=== PATIENT | female | born 1955 | race Two or more races ===

== ENCOUNTER → 2016-11-23 | Outpatient (CLI) | payer BC ==
--- NOTE | 2016-11-23 14:16 | NM ---
EXAMINATION TYPE: NM bone scan whole body DATE OF EXAM: 11/23/2016 COMPARISON: CT abdomen pelvis 06/03/2014, thoracic spine 03/15/2011 HISTORY: Joint pain, rheumatoid arthritis, M06.9 Delayed whole-body scanning was performed following the injection of 24.4 mCi Tc 99m MDP. Images acq uired 5.5 hours post injection. FINDINGS: There is uptake within the wrists, knees, ankles, feet, shoulders, and cervical spine compatible with arthropathy change. Uptake in the lower thoracic spine may be due to degenerative disc disease. Ther e is a spinal curvature present. IMPRESSION: Findings compatible with arthritis, consider degenerative disc disease and osteoarthritis, plain film correlations.
== END ==
LOC: RADNMMAIN 07:26
PROVIDERS: ATTEND Internal Medicine
DX: M06.9 Rheumatoid arthritis, unspecified (principal)
CPT/HCPCS: 78306; A9503

== ENCOUNTER → 2018-03-01 | Outpatient (CLI) | payer OTHER | LOC: RADMRIMAIN 17:59 | PROVIDERS: ATTEND Internal Medicine | DX: Z53.9 Procedure and treatment not carried out, unspecified reason (principal) ==

== ENCOUNTER → 2018-03-03 | Outpatient (CLI) | payer OTHER ==
--- NOTE | 2018-03-03 23:05 | MR ---
EXAMINATION TYPE: MR brittany/lspine wo con DATE OF EXAM: 03/03/2018 COMPARISON: None HISTORY: Cervicalgia /Low back pain TECHNIQUE: Multiplanar, multisequence imaging of the lumbar spine and cervical spine is performed wit hout IV contrast. FINDINGS: The cervical vertebra have fairly normal alignment. There is some degenerative disc space narrowing a t C3-4 C5-6 and C6-7. There is small posterior cervical disc herniations at C3-4 C5-6 C6-7. There is a large slightly larger posterior disc herniation at C4-5. There is 8 mm spinal canal at C6-7. The ca nal is 9 mm at C5-6. Cervical spinal cord shows no edema. Brainstem appears intact. There is multilev el hypertrophic cervical facet arthropathy. There is no cervical paraspinal mass. The lumbar vertebra have normal alignment. Disc spaces are fairly normal for age. The posterior eleme nts are intact. There is no compression fracture. The neuroforamina are fairly well-maintained. I see no bony destructive process. There is no lumbar spinal stenosis. There is no lumbar paraspinal mass. There is small posterior disc bulging at L2-3 without compromise of the spinal canal. IMPRESSION: Multilevel cervical spondylotic changes as above. There is 8 mm mild spinal stenosis at C6-7. Mild po sterior multilevel cervical disc herniation as above. No fracture. Minor degenerative changes in the lumbar spine. No fracture. No spinal stenosis.
== END ==
LOC: RADMRIMAIN 14:33
PROVIDERS: ATTEND Internal Medicine
DX: M48.02 Spinal stenosis, cervical region (principal); M50.21 Other cervical disc displacement, high cervical region; M47.812 Spondylosis without myelopathy or radiculopathy, cervical region; M47.816 Spondylosis without myelopathy or radiculopathy, lumbar region
CPT/HCPCS: 72141; 72148

== ENCOUNTER → 2019-11-29 | Outpatient (CLI) | payer OTHER ==
[2019-11-29 14:56] LABS: Basophils # (A) 0.1 k/uL (0-0.2); Basophils % (A) 1 %; Eosinophils # (A) 0.3 k/uL (0-0.7); Eosinophils % (A) 3 %; HCT 44.6 % (34.0-46.0); HGB 14.3 gm/dL (11.4-16.0); Lymphocytes # (A) 3.1 k/uL (1.0-4.8); Lymphocytes % (A) 32 %; MCH 32.1 pg (25.0-35.0); MCHC 32.1 g/dL (31.0-37.0); Monocytes # (A) 0.4 k/uL (0-1.0); Monocytes % (A) 4 %; Neutrophils # (A) 5.9 k/uL (1.3-7.7); Neutrophils % (A) 59 %; Platelet Count 223 k/uL (150-450); RBC 4.46 m/uL (3.80-5.40); RDW 12.5 % (11.5-15.5); WBC 9.9 k/uL (3.8-10.6)
[2019-11-30 00:54] LABS: African American GFR (CKD) 91.6 (60.0-200.0); Albumin 4.3 g/dL (3.80-4.90); Albumin/Globulin Ratio 1.95 (1.60-3.17); Anion Gap 8.1 mmol/L (4.00-12.00); BUN/Creat Ratio 28.75 Ratio (12.00-20.00); Calcium 8.8 mg/dL (8.7-10.3); Carbon Dioxide 25.9 mmol/L (21.6-31.8); Chol/HDL Ratio 3.17; Globulin 2.2 g/dL (1.6-3.3); LDL Cholesterol,Calculated 82.8 mg/dL (0.0-131.0); Potassium 4.1 mmol/L (3.5-5.5); Total Bilirubin 0.4 mg/dL (0.2-1.2); Total Protein 6.5 g/dL (6.2-8.2); VLDL Calculation 30.2 mg/dL (5.00-40.00)
== END | disposition home or self-care (01) ==
LOC: LABWHC1 11:28
PROVIDERS: ATTEND Nurse Practitioner Acute Care
DX: E55.9 Vitamin D deficiency, unspecified (principal); R53.83 Other fatigue; R42 Dizziness and giddiness
CPT/HCPCS: 36415; 80053; 80061; 82306; 82607; 85025

== ENCOUNTER 2023-07-08 15:03 | Observation (INO) | payer MEDICARE, OTHER ==
[2023-07-08 17:09] LABS: Basophils # (A) 0.1 k/uL (0-0.2); Basophils % (A) 1 %; Eosinophils # (A) 0.2 k/uL (0-0.7); Eosinophils % (A) 2 %; HCT 45.8 % (34.0-46.0); HGB 15.4 gm/dL (11.4-16.0); Lymphocytes # (A) 2.1 k/uL (1.0-4.8); Lymphocytes % (A) 21 %; MCH 33.2 pg (25.0-35.0); MCHC 33.6 g/dL (31.0-37.0); Mean Platelet Volume 8.1; Monocytes # (A) 0.4 k/uL (0-1.0); Monocytes % (A) 4 %; Neutrophils # (A) 6.9 k/uL (1.3-7.7); Neutrophils % (A) 71 %; Platelet Count 229 k/uL (150-450); RBC 4.62 m/uL (3.80-5.40); RDW 12.6 % (11.5-15.5); WBC 9.7 k/uL (3.8-10.6)
[2023-07-08 17:23] LABS: ALT 13 U/L (4-34); AST 22 U/L (14-36); African American GFR (CKD) >90 (>60 ml/min/1.73 sqM); Albumin 3.8 g/dL (3.5-5.0); Alkaline Phosphatase 95 U/L (38-126); Anion Gap 4 mmol/L; Blood Urea Nitrogen 19 mg/dL (7-17); Calcium 9.1 mg/dL (8.4-10.2); Carbon Dioxide 28 mmol/L (22-30); Chloride 107 mmol/L (98-107); Glucose 121 mg/dL (74-99); Non-African American GFR(CKD) >90 (>60 ml/min/1.73 sqM); Potassium 4.1 mmol/L (3.5-5.1); Sodium 139 mmol/L (137-145); Total Bilirubin 0.5 mg/dL (0.2-1.3); Total Protein 6.5 g/dL (6.3-8.2)
[2023-07-08 17:55] LABS: INR 0.9 (<1.2); Partial Thromboplastin Time 28.1 sec (22.0-30.0); Prothrombin Time 9.9 sec (10.0-12.5)
--- NOTE | 2023-07-08 19:07 | ED ---
General Adult HPI - General Chief complaint: Headache Stated complaint: Stroke symptoms Time Seen by Provider: 07/08/23 15:10 Source: patient Mode of arrival: wheelchair Limitations: no limitations - History of Present Illness Initial comments: 68-year-old female who presents the emergency department reporting near syncope. States that she was at a restaurant eating when she felt like she was get a pass out. States that she got very weak and stiff. She was having some chest pain and shortness of breath. Patient reports that she has been having hemo ptysis for the past couple of weeks. Patient is a smoker. She denies history of coronary disease. Patient ended up going home from the restaurant of symptoms past however she started feeling weak and diaphoretic once again at home and this is what prompted her to come into the emergency department. - Related Data Home Medications Medication Instructions Recorded Confirmed Omeprazole 20 mg PO DAILY 02/24/16 07/08/23 Aspirin EC [Ecotrin Low Dose] 81 mg PO DAILY 07/08/23 07/08/23 Escitalopram [Lexapro] 5 mg PO DAILY 07/08/23 07/08/23 Gabapentin 600 mg PO QID PRN 07/08/23 07/08/23 HYDROcodone/APAP 10-325MG [[place] 1 tab PO TID PRN 07/08/23 07/08/23 10-325] Meloxicam [Mobic] 15 mg PO DAILY 07/08/23 07/08/23 lisinopriL [Zestril] 5 mg PO DAILY 07/08/23 07/08/23 Previous Rx's Medication Instructions Recorded Nicotine 14Mg/24Hr Patch [Habitrol] 1 patch TRANSDERM DAILY #30 patch 07/09/23 Allergies Allergy/AdvReac Type Severity Reaction Status Date / Time No Known Allergies Allergy Verified 07/08/23 16:35 Review of Systems ROS Statement: Those systems with pertinent positive or pertinent negative responses have been documented in the HPI. ROS Other: All systems not noted in ROS Statement are negative. Past Medical History Past Medical History: Fibromyalgia, GERD/Reflux, Osteoarthritis (OA) Additional Past Medical History / Comment(s): pleurisy, migraines, "slow heart rate" getting heart monitor today, on antibioitics for "stomach infection", recent diarrhea, History of Any Multi-Drug Resistant Organisms: None Reported Past Surgical History: Orthopedic Surgery Additional Past Surgical History / Comment(s): reyes knee arthroscopy, left meng ulder arthroscopy Past Anesthesia/Blood Transfusion Reactions: No Reported Reaction Past Psychological History: No Psychological Hx Reported Past Alcohol Use History: None Reported Past Drug Use History: Marijuana - Past Family History Father Family Medical History: Cancer Mother Family Medical History: Cancer General Exam Limitations: no limitations General appearance: alert, in no apparent distress Head exam: Present: atraumatic, normocephalic, normal inspection Eye exam: Present: normal appearance, PERRL, EOMI. Absent: scleral icterus, conjunctival injection, periorbital swelling ENT exam: Present: normal exam, mucous membranes moist Neck exam: Present: normal inspection. Absent: tenderness, meningismus, lymphadenopathy Respiratory exam: Present: wheezes. Absent: respiratory distress, rales, rhonchi, stridor Cardiovascular Exam: Present: regular rate, normal rhythm, normal heart sounds. Absent: systolic murmur, diastolic murmur, rubs, gallop, clicks GI/Abdominal exam: Present: soft, normal bowel sounds. Absent: distended, tenderness, guarding, rebound, rigid Extremities exam: Present: normal inspection, full ROM, normal capillary refill. Absent: tenderness, pedal edema, joint swelling, calf tenderness Back exam: Present: normal inspection Neurological exam: Present: alert, oriented X3, CN II-XII intact Psychiatric exam: Present: normal affect, normal mood Skin exam: Present: warm, dry, intact, normal color. Absent: rash Course Vital Signs 07/08/23 07/08/23 07/08/23 15:09 18:12 20:39 Temperature 99.0 F Pulse Rate 71 63 68 Pulse Rate [ Pulse Oximetery ] Respiratory 16 16 16 Rate Blood Pressure 156/89 160/81 Blood Pressure [Right Arm] O2 Sat by Pulse 97 99 97 Oximetry 07/08/23 21:50 Temperature 98.3 F Pulse Rate Pulse Rate [ 63 Pulse Oximetery ] Respiratory 16 Rate Blood Pressure Blood Pressure 162/77 [Right Arm] O2 Sat by Pulse 99 Oximetry Medical Decision Making - Medical Decision Making Was pt. sent in by a medical professional or institution (, PA, UNDERTAKER ASSISTANT, urgent care, hospital, or shelter...) When possible be specific @ -No Did you speak to anyone other than the patient for history (EMS, parent, family, police, friend...)? What history was obtained from this source @ -No Did you review nursing and triage notes (agree or disagree)? Why? @ -I reviewed nursing note. Reports that the patient is here for headache. Patient states that she is here for near syncope and hemoptysis, not headache Were old charts reviewed (outside hosp., previous admission, EMS record, old EKG, old radiological studies, urgent care reports/EKG's, shelter records)? Report findings @ -No old charts were reviewed Differential Diagnosis (chest pain, altered mental status, abdominal pain women, abdominal pain men, vaginal bleeding, weakness, fever, dyspnea, syncope, headache, dizziness, GI bleed, back pain, seizure, CVA, palpatations, mental health, musculoskeletal)? @ -Differential Dizziness: Benign paroxysmal positional Vertigo, Menieres disease, otitis media, acoustic neuroma, vertebrobasilar insufficiency, cerebellar stroke, encephalitis, hypovolemic, arrhythmia, coronary artery syndrome, anemia, this is not meant to be an all-inclusive list EKG interpreted by me (3pts min.). @ -Yes and demonstrates sinus rhythm with a rate of 68. OK interval 145. QRS 86. QTc of 440. No acute ST segment ovation's or depressions X-rays interpreted by me (1pt min.). @ -None done CT interpreted by me (1pt min.). @ -Yes and demonstrates a large spiculated lung mass U/S interpreted by me (1pt. min.). @ -None done What testing was considered but not performed or refused? (CT, X-rays, U/S, labs)? Why? @ -None What meds were considered but not given or refused? Why? @ -None Did you discuss the management of the patient with other professionals (professionals i.e. , PA, UNDERTAKER ASSISTANT, lab, RT, psych nurse, social science professor, filler shredder helper, teacher, loan workout officer, immigration case worker)? Give summary @ -Spoke with Dr. Durbin who will admit the patient Was smoking cessation discussed for >3mins.? @ -Yes, smoking cessation was discussed for 5 minutes in the setting that the patient has likely lung cancer. Stressed that the patient must quit at this time while she is undergoing treatment Was critical care preformed (if so, how long)? @ -No Were there social determinants of health that impacted care today? How? (Homelessness, low income, unemployed, alcoholism, drug addiction, transportation, low edu. Level, literacy, decrease access to med. care, penitentiary, rehab)? @ -No Was there de-escalation of care discussed even if they declined (Discuss DNR or withdrawal of care, Hospice)? DNR status @ -No What co-morbidities impacted this encounter? (DM, HTN, Smoking, COPD, CAD, Cancer, CVA, ARF, Chemo, Hep., AIDS, mental health diagnosis, sleep apnea, morbid obesity)? @ -None Was patient admitted / discharged? Hospital course, mention meds given and route, prescriptions, significant lab abnormalities, going to OR and other pertinent info. @ -Upon arrival patient was placed into room 26. Thorough history and physical exam was performed. IV was established and laboratory studies are conducted. CT of the chest was performed which demonstrates a large bronchogenic mass. Due to patient's near syncope and newly diagnosed lung mass, I recommended admission for pulmonology consultation. Patient was agreeable to this. Spoke with Dr. Durbin for admission Undiagnosed new problem with uncertain prognosis? @ -Yes Drug Therapy requiring intensive monitoring for toxicity (Heparin, Nitro, Insulin, Cardizem)? @ -No Were any procedures done? @ -No Diagnosis/symptom? @ -Acute hemoptysis, near syncope, newly diagnosed lung mass Acute, or Chronic, or Acute on Chronic? @ -Acute Uncomplicated (without systemic symptoms) or Complicated (systemic symptoms)? @ -Complicated Side effects of treatment? @ -No Exacerbation, Progression, or Severe Exacerbation? @ -No Poses a threat to life or bodily function? How? (Chest pain, [place], [place], pneumonia, PE, COPD, DKA, ARF, appy, cholecystitis, CVA, Diverticulitis, Homicidal, Suicidal, threat to staff... and all critical care pts) @ -Yes as patient has possible newly diagnosed cancer - Lab Data Result diagrams: 07/09/23 06:17 07/09/23 06:17 Lab Results 07/08/23 07/08/23 07/08/23 Range/Units 16:56 16:56 17:28 WBC 9.7 (3.8-10.6) k/uL RBC 4.62 (3.80-5.40) m/uL Hgb 15.4 (11.4-16.0) gm/dL Hct 45.8 (34.0-46.0) % MCV 99.0 (80.0-100.0) fL MCH 33.2 (25.0-35.0) pg MCHC 33.6 (31.0-37.0) g/dL RDW 12.6 (11.5-15.5) % Plt Count 229 (150-450) k/uL MPV 8.1 Neutrophils % 71 % Lymphocytes % 21 % Monocytes % 4 % Eosinophils % 2 % Basophils % 1 % Neutrophils # 6.9 (1.3-7.7) k/uL Lymphocytes # 2.1 (1.0-4.8) k/uL Monocytes # 0.4 (0-1.0) k/uL Eosinophils # 0.2 (0-0.7) k/uL Basophils # 0.1 (0-0.2) k/uL PT 9.9 L (10.0-12.5) sec INR 0.9 (<1.2) APTT 28.1 (22.0-30.0) sec Sodium 139 (137-145) mmol/L Potassium 4.1 (3.5-5.1) mmol/L Chloride 107 (98-107) mmol/L Carbon Dioxide 28 (22-30) mmol/L Anion Gap 4 mmol/L BUN 19 H (7-17) mg/dL Creatinine 0.68 (0.52-1.04) mg/dL Est GFR (CKD-EPI)AfAm >90 (>60 ml/min/1.73 sqM) Est GFR (CKD-EPI)NonAf >90 (>60 ml/min/1.73 sqM) Glucose 121 H (74-99) mg/dL Calcium 9.1 (8.4-10.2) mg/dL Magnesium (1.6-2.3) mg/dL Total Bilirubin 0.5 (0.2-1.3) mg/dL AST 22 (14-36) U/L ALT 13 (4-34) U/L Alkaline Phosphatase 95 (38-126) U/L Troponin I (0.000-0.034) ng/mL NT-Pro-B Natriuret Pep pg/mL Total Protein 6.5 (6.3-8.2) g/dL Albumin 3.8 (3.5-5.0) g/dL 07/08/23 07/08/23 Range/Units 17:28 17:28 WBC (3.8-10.6) k/uL RBC (3.80-5.40) m/uL Hgb (11.4-16.0) gm/dL Hct (34.0-46.0) % MCV (80.0-100.0) fL MCH (25.0-35.0) pg MCHC (31.0-37.0) g/dL RDW (11.5-15.5) % Plt Count (150-450) k/uL MPV Neutrophils % % Lymphocytes % % Monocytes % % Eosinophils % % Basophils % % Neutrophils # (1.3-7.7) k/uL Lymphocytes # (1.0-4.8) k/uL Monocytes # (0-1.0) k/uL Eosinophils # (0-0.7) k/uL Basophils # (0-0.2) k/uL PT (10.0-12.5) sec INR (<1.2) APTT (22.0-30.0) sec Sodium (137-145) mmol/L Potassium (3.5-5.1) mmol/L Chloride (98-107) mmol/L Carbon Dioxide (22-30) mmol/L Anion Gap mmol/L BUN (7-17) mg/dL Creatinine (0.52-1.04) mg/dL Est GFR (CKD-EPI)AfAm (>60 ml/min/1.73 sqM) Est GFR (CKD-EPI)NonAf (>60 ml/min/1.73 sqM) Glucose (74-99) mg/dL Calcium (8.4-10.2) mg/dL Magnesium 2.0 (1.6-2.3) mg/dL Total Bilirubin (0.2-1.3) mg/dL AST (14-36) U/L ALT (4-34) U/L Alkaline Phosphatase (38-126) U/L Troponin I <0.012 (0.000-0.034) ng/mL NT-Pro-B Natriuret Pep 59 pg/mL Total Protein (6.3-8.2) g/dL Albumin (3.5-5.0) g/dL Disposition Clinical Impression: Chest pain, Hemoptysis, Lung mass Disposition: ADMITTED IP TO THIS HOSP Condition: Good Is patient prescribed a controlled substance at d/c from ED?: No Time of Disposition: 20:25 Decision to Admit Reason: Admit from EC Decision Date: 07/08/23 Decision Time: 20:25
--- NOTE | 2023-07-08 19:20 | CT ---
EXAMINATION TYPE: CT chest angio for PE DATE OF EXAM: 07/08/2023 COMPARISON: NONE HISTORY: chest pain, hemoptysis CT DLP: 280 mGycm. Automated Exposure Control for Dose Reduction was Utilized. CONTRAST: CTA scan of the thorax is performed with IV Contrast, patient injected with 80ml mL of Isov ue 370. MIP Images are created on CT scanner and reviewed. 3D reconstructed images are created on an independent workstation and reviewed. FINDINGS: LUNGS: In the axial compartment of the right lower lobe there is a 3.9 cm spiculated bronchogenic mas s, consistent with bronchogenic carcinoma until proven otherwise. The remainder of the lungs are lora r. The tracheobronchial tree is patent. PLEURAL SPACES: There is no pleural effusion or pneumothorax. MEDIASTINUM: There is satisfactory enhancement of the pulmonary artery and its branches, and there is no CT evidence for pulmonary embolism. There is no acute aortic process. There are prominent coronar y calcifications. No cardiomegaly or pericardial effusion. There are no greater than 1 cm hilar or mediastinal lymph nodes. OTHER: No additional significant abnormality is seen. IMPRESSION: Negative for pulmonary embolism or acute aortic process. Prominent coronary calcification is noted. Incidental 3.9 cm right lower lobe bronchogenic mass consistent with bronchogenic carcinoma until pro radha otherwise.
[2023-07-08] MEDS ORDERED: NALOXONE 0.4 MG/ML 1 ML VIAL IV PRN (20:26)
[2023-07-08] MEDS: NICOTINE 21MG/24HR PATCH TRANSDERM STA (20:37)
[2023-07-09] MEDS ORDERED: HYDROcodone/APAP 10-325MG 1 EACH TAB PO PRN (03:18)
[2023-07-09] MEDS ORDERED: GABAPENTIN 300 MG CAP PO PRN (03:18)
--- NOTE | 2023-07-09 03:30 | P.HPIM ---
History of Present Illness H&P Date: 07/08/23 Chief Complaint: Near syncope 68-year-old female with history of MS, arthritis, hypertension Patient coming in for evaluation of near syncope. She had her doctor's appointment today and she was fasting all day to get some blood work done and then went with her fianc to the gas station get some food she felt weak and tired over there dizzy and was having palpitations so she went home continued to feel very dizzy and lightheaded and about to pass out denies any associated fevers chills nausea vomiting chest pain or shortness of breath however palpitations continued and she was getting very weak for which decided to come into the hospital for evaluation Patient also reports some occasional hemoptysis over the past 3 weeks, she admits to heavy smoking for many years but denies any associated weight loss denies any recent travel or hospital stay denies any history of blood clots. She does admit to night sweats Otherwise she denies any illicit drugs or heavy alcohol review of systems Pertinent positives as noted in HPI. All other systems were reviewed and are negative on exam Constitutional: No acute distress, conversant, pleasant Eyes: Anicteric sclerae, moist conjunctiva, Pupils equal round reactive to light ENMT: NC/AT Oropharynx clear, no erythema, or exudates Neck: Supple, no masses, or JVD No carotid bruits No thyromegaly Lungs: Clear to auscultation Clear to percussion Normal respiratory effort, no accessory muscle use Cardiovascular: Heart regular in rate and rhythm, No murmurs, gallops, or rubs No peripheral edema Abdominal: Soft Nontender, no guarding, rebound or rigidity Abdomen moving with respiration Normoactive bowel sounds Extremities: No digital cyanosis No clubbing Pedal pulses intact and symmetrical Radial pulses intact and symmetrical No calf tenderness Psychiatric: Alert and oriented to person, place and time Appropriate affect fair judgement Neuro Muscles Strength 5/5 in all 4 extremities Sensation to light touch grossly present throughout Cranial nerves II-XII grossly intact Past Medical History Past Medical History: Fibromyalgia, GERD/Reflux, Osteoarthritis (OA) Additional Past Medical History / Comment(s): pleurisy, migraines, "slow heart rate" getting heart monitor today, on antibioitics for "stomach infection", recent diarrhea, History of Any Multi-Drug Resistant Organisms: None Reported Past Surgical History: Orthopedic Surgery Additional Past Surgical History / Comment(s): reyes knee arthroscopy, left shoulder arthroscopy Past Anesthesia/Blood Transfusion Reactions: No Reported Reaction Past Psychological History: No Psychological Hx Reported Past Alcohol Use History: None Reported Past Drug Use History: Marijuana - Past Family History Father Family Medical History: Cancer Mother Family Medical History: Cancer Medications and Allergies Home Medications Medication Instructions Recorded Confirmed Type Omeprazole 20 mg PO DAILY 02/24/16 07/08/23 History Aspirin EC [Ecotrin Low Dose] 81 mg PO DAILY 07/08/23 07/08/23 History Escitalopram [Lexapro] 5 mg PO DAILY 07/08/23 07/08/23 History Gabapentin 600 mg PO QID PRN 07/08/23 07/08/23 History HYDROcodone/APAP 10-325MG [[place] 1 tab PO TID PRN 07/08/23 07/08/23 History 10-325] Meloxicam [Mobic] 15 mg PO DAILY 07/08/23 07/08/23 History lisinopriL [Zestril] 5 mg PO DAILY 07/08/23 07/08/23 History Allergies Allergy/AdvReac Type Severity Reaction Status Date / Time No Known Allergies Allergy Verified 07/08/23 16:35 Physical Exam Vitals: Vital Signs Temp Pulse Resp BP Pulse Ox 07/08/23 20:39 68 16 160/81 97 07/08/23 18:12 63 16 156/89 99 07/08/23 15:09 99.0 F 71 16 97 Intake and Output 07/08/23 07/08/23 07/08/23 06:59 14:59 22:59 Other: Weight 75.75 kg Results CBC & Chem 7: 07/08/23 16:56 07/08/23 16:56 Labs: Abnormal Lab Results - Last 24 Hours (Table) 07/08/23 07/08/23 Range/Units 16:56 17:28 PT 9.9 L (10.0-12.5) sec BUN 19 H (7-17) mg/dL Glucose 121 H (74-99) mg/dL Assessment and Plan Assessment: 68-year-old female with history of MS, osteoarthritis, coming in for near syncope dizziness generalized weakness and 3-week history of hemoptysis I discussed case with ED doctor accepted the admission for incidental finding of 4 cm bronchogenic mass concerning for bronchogenic cancer with anticipated length of stay less than 2 midnights Near syncope Cardiac monitoring Cardiology consult Check echocardiogram Supportive care Fall precautions IV fluid hydration with normal saline 75 cc/h Blood work showing white count 9.7 hemoglobin 15.4 BUN 17 creatinine 0.68 sodium 139 potassium 4.1 unremarkable Troponins negative EKG no acute ST changes, normal sinus rhythm CT angio of the chest showed no acute PE however incidental finding of 4 cm br onchogenic lumbar mass Pulmonary consultation Rule out bronchogenic cancer Patient heavy smoker Hypertension Continue with lisinopril Full code DVT prophylaxis mechanical due to possible procedure for tissue biopsy
[2023-07-09] MEDS: PANTOPRAZOLE 40 MG TABLET PO SCH (05:43)
[2023-07-09] MEDS: SODIUM CHLORIDE 0.9% 1,000 ML IV SCH (05:43)
[2023-07-09] MEDS: lisinopriL 5 MG TAB PO SCH (08:52)
[2023-07-09] MEDS: ESCITALOPRAM 5 MG TAB PO SCH (08:52)
--- NOTE | 2023-07-09 09:22 | P.CRDCN ---
History of Present Illness Consult date: 07/09/23 Consult reason: chest pain History of present illness: History of present illness: This is a 68-year-old female with past medical history of gastroesophageal reflux disease, fibromyalgia, MS, chronic back pain, osteoarthritis in the lower extremities, tobacco use and dependence, marijuana use. We have been asked to evaluate the patient for chest pain. Patient gives history that she has had episodes of dizziness feeling like she was going to pass out that been going on for the past month. She denies having any chest pain or pressure. No chest pain with activity. She states she has been busy with her daughter who has been sick for an extended period of time. Patient also states that she has been coughing up blood either pink or red in sputum but no blood clots. This has been going on for the past 2 to 3 weeks intermittently. Patient is a smoker of a half a pack per day. She also uses marijuana. No illicit drug use or alcohol use. Pulmonary medicine is on consult for lung mass. EKG sinus rhythm with no acute ST-T wave changes. CTA of the chest: Negative for pulmonary embolism or acute aortic process. Prominent coronary calcification. Incidental right lower lobe bronchogenic mass 3.9 cm consistent with bronchogenic carcinoma CBC, INR electrolytes all within normal limits. BUN 19 creatinine 0.68. Troponin negative x 3 draws. Glucose 121. Magnesium 2. Liver function test are normal. proBNP 59. Home cardiac medications: Aspirin 81 mg daily, lisinopril 5 mg daily. Review Of Systems: At the time of my exam: CONSTITUTIONAL: Denies fever or chills. HEENT: Denies blurred vision, vision changes, or eye pain. Denies hemoptysis CARDIOVASCULAR: Denies chest pain. Denies orthopnea. Denies PND. Denies palpitations RESPIRATORY: Denies shortness of breath. GASTROINTESTINAL: Denies abdominal pain. Denies nausea or vomiting. HEMATOLOGIC: Denies bleeding disorders. GENITOURINARY: Denies any blood in urine. SKIN: Denies pruitis. Denies rash. Physical examination: Gen: This is a 68-year-old female in no acute distress VS: reviewed HEENT: Head is atraumatic, normocephalic. Pupils equal, round. Sclerae is ani cteric. NECK: Supple. No JVD. LUNGS: Clear to auscultation. No wheezes or rhonchi. No intercostal retractions. HEART: Regular rate and rhythm. No murmur. ABDOMEN: Soft No tenderness. EXTREMITIES: No pedal edema. No calf tenderness. NEUROLOGICAL: Patient is awake, alert and oriented x3. Assessment: Dizziness, acute coronary syndrome ruled out with negative troponins Hemoptysis Lung mass Plan: Resume patient's home cardiac medications Obtain 2-D echocardiogram and Doppler study to assess cardiac structure and function If echocardiogram is unremarkable, patient is cleared for discharge from cardiology and will follow-up with Dr. Cordova in the office for outpatient stress testing. Thank you kindly for this consultation. Nurse practitioner note has been reviewed, I agree with documented findings and plan of care. Patient was seen and examined. Past Medical History Past Medical History: Fibromyalgia, GERD/Reflux, Osteoarthritis (OA) Additional Past Medical History / Comment(s): pleurisy, migraines, "slow heart rate" getting heart monitor today, on antibioitics for "stomach infection", recent diarrhea, History of Any Multi-Drug Resistant Organisms: None Reported Past Surgical History: Orthopedic Surgery Additional Past Surgical History / Comment(s): reyes knee arthroscopy, left shoulder arthroscopy Past Anesthesia/Blood Transfusion Reactions: No Reported Reaction Past Psychological History: No Psychological Hx Reported Past Alcohol Use History: None Reported Past Drug Use History: Marijuana - Past Family History Father Family Medical History: Cancer Mother Family Medical History: Cancer Medications and Allergies Home Medications Medication Instructions Recorded Confirmed Type Omeprazole 20 mg PO DAILY 02/24/16 07/08/23 History Aspirin EC [Ecotrin Low Dose] 81 mg PO DAILY 07/08/23 07/08/23 History Escitalopram [Lexapro] 5 mg PO DAILY 07/08/23 07/08/23 History Gabapentin 600 mg PO QID PRN 07/08/23 07/08/23 History HYDROcodone/APAP 10-325MG [[place] 1 tab PO TID PRN 07/08/23 07/08/23 History 10-325] Meloxicam [Mobic] 15 mg PO DAILY 07/08/23 07/08/23 History lisinopriL [Zestril] 5 mg PO DAILY 07/08/23 07/08/23 History Allergies Allergy/AdvReac Type Severity Reaction Status Date / Time No Known Allergies Allergy Verified 07/08/23 16:35 Physical Exam Vitals: Vital Signs Temp Pulse Pulse Resp BP BP BP 07/09/23 02:05 98.2 F 65 16 151/70 07/08/23 21:50 98.3 F 63 16 162/77 07/08/23 20:39 68 16 160/81 07/08/23 18:12 63 16 156/89 07/08/23 15:09 99.0 F 71 16 Pulse Ox 07/09/23 02:05 98 07/08/23 21:50 99 07/08/23 20:39 97 07/08/23 18:12 99 07/08/23 15:09 97 Intake and Output 07/08/23 07/09/23 07/09/23 22:59 06:59 14:59 Other: Voiding Method Toilet # Voids 1 2 Weight 75.75 kg Results 07/08/23 16:56 07/08/23 16:56 Cardiac Enzymes 07/08/23 07/08/23 07/08/23 Range/Units 16:56 17:28 22:25 AST 22 (14-36) U/L Troponin I <0.012 <0.012 (0.000-0.034) ng/mL 07/09/23 Range/Units 01:16 AST (14-36) U/L Troponin I <0.012 (0.000-0.034) ng/mL Coagulation 07/08/23 Range/Units 17:28 PT 9.9 L (10.0-12.5) sec APTT 28.1 (22.0-30.0) sec CBC 07/08/23 Range/Units 16:56 WBC 9.7 (3.8-10.6) k/uL RBC 4.62 (3.80-5.40) m/uL Hgb 15.4 (11.4-16.0) gm/dL Hct 45.8 (34.0-46.0) % Plt Count 229 (150-450) k/uL Comprehensive Metabolic Panel 07/08/23 Range/Units 16:56 Sodium 139 (137-145) mmol/L Potassium 4.1 (3.5-5.1) mmol/L Chloride 107 (98-107) mmol/L Carbon Dioxide 28 (22-30) mmol/L BUN 19 H (7-17) mg/dL Creatinine 0.68 (0.52-1.04) mg/dL Glucose 121 H (74-99) mg/dL Calcium 9.1 (8.4-10.2) mg/dL AST 22 (14-36) U/L ALT 13 (4-34) U/L Alkaline Phosphatase 95 (38-126) U/L Total Protein 6.5 (6.3-8.2) g/dL Albumin 3.8 (3.5-5.0) g/dL Current Medications Generic Name Dose Route Start Last Admin Trade Name Freq PRN Reason Stop Dose Admin Hydrocodone Bitart/Acetaminophen 1 each 07/09/23 03:18 Hydrocodone/Apap 10-325mg 1 Each Tab PO TID PRN Pain Escitalopram Oxalate 5 mg 07/09/23 09:00 Escitalopram 5 Mg Tab PO DAILY RAND Gabapentin 600 mg 07/09/23 03:18 Gabapentin 300 Mg Cap PO QID PRN Pain Sodium Chloride 1,000 mls @ 75 mls/hr 07/09/23 03:30 07/09/23 05:43 Saline 0.9% IV 75 mls/hr .[id number] RAND Administration Lisinopril 5 mg 07/09/23 09:00 Lisinopril 5 Mg Tab PO DAILY RAND Naloxone HCl 0.2 mg 07/08/23 20:26 Naloxone 0.4 Mg/Ml 1 Ml Vial IV Q2M PRN Opioid Reversal Pantoprazole Sodium 40 mg 07/09/23 07:30 07/09/23 05:43 Pantoprazole 40 Mg Tablet PO 40 mg [id number] RAND Administration Intake and Output 07/08/23 07/09/23 07/09/23 22:59 06:59 14:59 Other: Voiding Method Toilet # Voids 1 2 Weight 75.75 kg 07/08/23 16:56 07/08/23 16:56
[2023-07-09 10:48] LABS: Basophils # (A) 0.06 X 10*3/uL (0.00-0.10); Basophils % (A) 0.6 %; Eosinophils # (A) 0.07 X 10*3/uL (0.04-0.35); Eosinophils % (A) 0.7 %; HCT 46.6 % (37.2-46.3); HGB 15.6 g/dL (12.0-15.0); Lymphocytes # (A) 1.75 X 10*3/uL (0.90-5.00); Lymphocytes % (A) 17.1 %; MCH 32.1 pg (27.0-32.0); MCHC 33.5 g/dL (32.0-37.0); MCV 95.9 FL (80.0-97.0); Mean Platelet Volume 10.2 FL (9.5-12.2); Monocytes # (A) 0.45 X 10*3/uL (0.20-1.00); Monocytes % (A) 4.4 %; NRBC Per 100 WBC 0 X 10*3/uL (0.00-0.01); Neutrophils # (A) 7.87 X 10*3/uL (1.80-7.70); Neutrophils % (A) 76.8 %; Platelet Count 283 X 10*3/uL (140-440); RBC 4.86 X 10*6/uL (4.10-5.20); WBC 10.24 X 10*3/uL (4.50-10.00)
[2023-07-09 11:08] LABS: BUN/Creat Ratio 18.71 Ratio (12.00-20.00); Blood Urea Nitrogen 13.1 mg/dL (9.0-27.0); Calcium 9.6 mg/dL (8.7-10.3); Carbon Dioxide 24.3 mmol/L (21.6-31.8); Chloride 106 mmol/L (96-109); Glucose 104 mg/dL (70-110); Sodium 142 mmol/L (135-145)
--- NOTE | 2023-07-09 11:42 | P.CNPUL ---
History of Present Illness Consult date: 07/09/23 Requesting physician: Tashi Castillo Reason for consult: abnormal CXR/CT Chief complaint: Dizziness and near syncope History of present illness: This is a very pleasant 68-year-old female patient with a known history of fibromyalgia, gastroesophageal reflux disease, osteoarthritis, marijuana use and chronic and ongoing tobacco dependence of greater than 40 years. She had developed some cough and congestion with some blood-tinged sputum. Yesterday she developed dizziness and weakness while at a restaurant and presented here to the emergency room for the same. A CT angiogram was performed that ruled out pulmonary embolism. There was an incidental 3.9 cm right centimeter right lower lobe bronchogenic mass consistent with bronchogenic carcinoma noted. White count 10.2. Hemoglobin 15.6. Platelets 283. Sodium 142. Potassium 4.0. Bicarb 24. BUN 13. Creatinine 0.7. Glucose 104. Troponins were negative x 3. proBNP 59. She is seen today in consultation on the regular medical floor. She is awake and alert in no acute distress. Resting comfortably in bed. No further dizziness or near syncopal episodes. She states she does have occasional blood-tinged sputum. Denies any worsening shortness of breath. She is maintaining good O2 saturation in the high 90s on room air. She is afebrile. Hemodynamically stable. Review of Systems REVIEW OF SYSTEMS: CONSTITUTIONAL: Denies any recent significant weight loss or weight gain. EYES: Denies change in vision. EARS, NOSE, MOUTH, THROAT: Denies headaches, denies sore throat. CARDIOVASCULAR: Positive for dizziness, near syncopal episodes. RESPIRATORY: Positive for hemoptysis. GASTROINTESTINAL: Denies change in appetite, denies abdominal pain GENITOURINARY: Denies hematuria, denies infections. MUSKULOSKELETAL: Denies pain, denies swelling. INTEGUMENTARY: Denies rash, denies eczema. NEUROLOGICAL: Denies recent memory loss, no recent seizure activity. PSYCHIATRIC: Denies anxiety, denies depression. HEMATOLOGIC/LYMPHATIC: Denies anemia, denies enlarged lymph nodes. Past Medical History Past Medical History: Fibromyalgia, GERD/Reflux, Osteoarthritis (OA) Additional Past Medical History / Comment(s): pleurisy, migraines, "slow heart rate" getting heart monitor today, on antibioitics for "stomach infection", recent diarrhea, History of Any Multi-Drug Resistant Organisms: None Reported Past Surgical History: Orthopedic Surgery Additional Past Surgical History / Comment(s): reyes knee arthroscopy, left shoulder arthroscopy Past Anesthesia/Blood Transfusion Reactions: No Reported Reaction Past Psychological History: No Psychological Hx Reported Past Alcohol Use History: None Reported Past Drug Use History: Marijuana - Past Family History Father Family Medical History: Cancer Mother Family Medical History: Cancer Medications and Allergies Home Medications Medication Instructions Recorded Confirmed Type Omeprazole 20 mg PO DAILY 02/24/16 07/08/23 History Aspirin EC [Ecotrin Low Dose] 81 mg PO DAILY 07/08/23 07/08/23 History Escitalopram [Lexapro] 5 mg PO DAILY 07/08/23 07/08/23 History Gabapentin 600 mg PO QID PRN 07/08/23 07/08/23 History HYDROcodone/APAP 10-325MG [[place] 1 tab PO TID PRN 07/08/23 07/08/23 History 10-325] Meloxicam [Mobic] 15 mg PO DAILY 07/08/23 07/08/23 History lisinopriL [Zestril] 5 mg PO DAILY 07/08/23 07/08/23 History Allergies Allergy/AdvReac Type Severity Reaction Status Date / Time No Known Allergies Allergy Verified 07/08/23 16:35 Physical Exam Vitals: Vital Signs Temp Pulse Pulse Resp BP BP BP 07/09/23 07:00 97.7 F 70 18 167/80 07/09/23 02:05 98.2 F 65 16 151/70 07/08/23 21:50 98.3 F 63 16 162/77 07/08/23 20:39 68 16 160/81 07/08/23 18:12 63 16 156/89 07/08/23 15:09 99.0 F 71 16 Pulse Ox 07/09/23 07:00 99 07/09/23 02:05 98 07/08/23 21:50 99 07/08/23 20:39 97 07/08/23 18:12 99 07/08/23 15:09 97 Intake and Output 07/08/23 07/09/23 07/09/23 22:59 06:59 14:59 Intake Total 180 Balance 180 Intake: Oral 180 Other: Voiding Method Toilet # Voids 1 2 Weight 75.75 kg GENERAL EXAM: Alert, very pleasant 68-year-old female, on room air, comfortable in no apparent distress. HEAD: Normocephalic. EYES: Normal reaction of pupils, equal size. NOSE: Clear with pink turbinates. THROAT: No erythema or exudates. NECK: No masses, no JVD. CHEST: No chest wall deformity. LUNGS: Equal air entry with no crackles, wheeze, rhonchi or dullness. CVS: S1 and S2 normal with no audible murmur, regular rhythm. ABDOMEN: No hepatosplenomegaly, normal bowel sounds, no guarding or rigidity. SPINE: No scoliosis or deformity SKIN: No rashes CENTRAL NERVOUS SYSTEM: No focal deficits, tone is normal in all 4 extremities. EXTREMITIES: There is no peripheral edema. No clubbing, no cyanosis. Peripheral pulses are intact. Results - Laboratory Findings CBC and BMP: 07/09/23 06:17 07/09/23 06:17 PT/INR, D-dimer PT 9.9 sec (10.0-12.5) L 07/08/23 17:28 INR 0.9 (<1.2) 07/08/23 17:28 Abnormal lab findings: Abnormal Labs 07/08/23 07/08/23 07/09/23 16:56 17:28 06:17 WBC 10.24 H Hgb 15.6 H Hct 46.6 H MCH 32.1 H Neutrophils # 7.87 H PT 9.9 L BUN 19 H Glucose 121 H - Diagnostic Findings CT scan - chest: image reviewed Assessment and Plan Assessment: Dizziness with near syncopal episode of unclear etiology Hemoptysis in a patient found to have an incidental 3.9 cm spiculated bronchogenic mass of the right lower lobe consistent with possible bronchogenic carcinoma Chronic and ongoing tobacco dependence of greater than 40 years Family history of lung cancer with a brother with recent lobectomy History of fibromyalgia Hypertension Osteoarthritis Plan: The patient was seen and evaluated CT angiogram, labs and medications reviewed Currently stable and on room air Would recommend outpatient PET scan Encouraged regarding the importance of complete smoking cessation Would recommend CT scan of the brain due to syncope and possible metastasis Follow-up in our office with Dr. Gupta post discharge I have personally seen and examined the patient, performed the documentation and the assessment and plan as written. Number of minutes spent on the visit: 20.
[2023-07-09 16:13] VITALS: PULSE 58; RESP 16; TEMP 98.4
--- NOTE | 2023-07-09 17:59 | P.DS ---
Providers Date of admission: 07/08/23 20:28 Expected date of discharge: 07/09/23 Attending physician: Tashi Castillo MD Consults: 07/08/23 20:26 Consult Physician Urgent Consulting Provider: Justus Gupta Consult Reason/Comments: Acute hemoptysis, lung mass Do you want consulting provider notified?: Yes Consult Physician Urgent Consulting Provider: [facility] Consult Reason/Comments: acute chest pain, coronary calcifications Do you want consulting provider notified?: Yes Primary care physician: [facility] [place] [facility] Course: Near syncope bronchogenic lobar mass Hypertension Hospital Course: 68-year-old female with history of MS, arthritis, hypertension presented for near syncope. During her workup, there was an incidental finding of 4 cm bronc hogenic mass concerning for bronchogenic cancer. She was admitted for evaluation by cardiology and pulmonology. No arrhythmic episodes were noted during her stay. She will f/u with cardiology for outpatient stress testing. Pulmonology recommended PET/CT scan outpatient and follow up in their office. She was discharged home with echo pending and will f/u this result with cardiology. Gen: In NAD, non-toxic HEENT: normocephalic, atraumatic, hearing acuity is intant, mucous membranes moist CVS: perfusing all extremities well, no pitting edema, Respiratory: symmetric chest expansion, no accessory muscle use, GI: soft, NTTP, ND, : no suprapubic tenderness, no CVA tenderness MSK/Derm: no rashes, cyanosis Neuro: CN II-XII intact, no motor weakness, Psych: cooperative, euthymic mood, judgment and insight is intact Patient Condition at Discharge: Good Plan - Discharge Summary New Discharge Prescriptions: Continue Omeprazole 20 mg PO DAILY Meloxicam [Mobic] 15 mg PO DAILY lisinopriL [Zestril] 5 mg PO DAILY HYDROcodone/APAP 10-325MG [[place] 10-325] 1 tab PO TID PRN PRN Reason: Pain Escitalopram [Lexapro] 5 mg PO DAILY Aspirin EC [Ecotrin Low Dose] 81 mg PO DAILY Gabapentin 600 mg PO QID PRN PRN Reason: Pain Discharge Medication List Omeprazole 20 mg PO DAILY 02/24/16 [History] Aspirin EC [Ecotrin Low Dose] 81 mg PO DAILY 07/08/23 [History] Escitalopram [Lexapro] 5 mg PO DAILY 07/08/23 [History] Gabapentin 600 mg PO QID PRN 07/08/23 [History] HYDROcodone/APAP 10-325MG [[place] 10-325] 1 tab PO TID PRN 07/08/23 [History] Meloxicam [Mobic] 15 mg PO DAILY 07/08/23 [History] lisinopriL [Zestril] 5 mg PO DAILY 07/08/23 [History] Follow up Appointment(s)/Referral(s): Gibson Madrigal MD [Medical Doctor] - 1 Week (please call [facility] and make appt. possible outpatient stress test with dr. madrigal. ) Dianna Joseph, DEDRA [Primary Care Provider] - 1-2 days Justus Gupta DO [Doctor of Osteopathic Medicine] - 07/20/23 8:30 am Discharge Disposition: HOME SELF-CARE
[2023-07-09 18:07] VITALS: BP 168/69
--- NOTE | 2023-07-10 13:26 | CA ---
Transthoracic Echo Report Name: Carri Jensen Age: 68 Gender: F : 1955 Exam Date: 07/09/2023 13:46 Exam Location: [facility] Ht (in): 61 Wt (lb): 167 Ordering Physician: Breanna Wolfe Attending/Referring Phys: [id number], [facility] Assistant Tonia Kapoor RDCS Procedure CPT: Indications: LVF Cardiac Hx: Technical Quality: Fair Contrast 1: Total Dose (mL): Contrast 2: Total Dose (mL): MEASUREMENTS (Male / Female) Normal Values 2D ECHO LV Diastolic Diameter PLAX 4.4 cm 4.2 - 5.9 / 3.9 - 5.3 cm LV Systolic Diameter PLAX 2.3 cm IVS Diastolic Thickness 1.0 cm 0.6 - 1.0 / 0.6 - 0.9 cm LVPW Diastolic Thickness 0.9 cm 0.6 - 1.0 / 0.6 - 0.9 cm LV Relative Wall Thickness 0.4 RV Internal Dim ED PLAX 3.2 cm LV Diastolic Volume MOD BP 86.0 cm??? 67 - 155 / 56 - 104 cm??? LV Systolic Volume MOD BP 30.9 cm??? 22 - 58 / 19 - 49 cm??? LV Ejection Fraction MOD BP 64.1 % >= 55 % LV Diastolic Volume MOD 4C 80.8 cm??? LV Systolic Volume MOD 4C 30.5 cm??? LV Ejection Fraction MOD 4C 62.3 % LV Diastolic Length 4C 7.9 cm LV Systolic Length 4C 6.7 cm LV Diastolic Volume MOD 2C 87.8 cm??? LV Systolic Volume MOD 2C 29.2 cm??? LV Ejection Fraction MOD 2C 66.8 % LV Diastolic Length 2C 7.4 cm LV Systolic Length 2C 6.2 cm M-MODE Aortic Root Diameter MM 2.7 cm LA Systolic Diameter MM 4.3 cm LA Ao Ratio MM 1.6 AV Cusp Separation MM 1.8 cm DOPPLER AV Peak Velocity 127.1 cm/s AV Peak Gradient 6.5 mmHg AV Mean Velocity 76.4 cm/s AV Mean Gradient 2.7 mmHg AV Velocity Time Integral 24.7 cm LVOT Peak Velocity 116.5 cm/s LVOT Peak Gradient 5.4 mmHg LVOT Velocity Time Integral 24.7 cm MV Area PHT 2.4 cm??? Mitral E Point Velocity 75.9 cm/s Mitral A Point Velocity 97.4 cm/s Mitral E to A Ratio 0.8 MV Deceleration Time 322.8 ms MV E' Velocity 7.3 cm/s Mitral E to MV E' Ratio 10.4 TR Peak Velocity 157.2 cm/s TR Peak Gradient 9.9 mmHg Right Ventricular Systolic Press 14.9 mmHg FINDINGS Left Ventricle Normal Left ventricular size, wall thickness, systolic function with no obvious regional wall motion abnormalities. Normal Left ventricular diastolic filling pattern. Left ventricular ejection fraction is estimated at 55-60 %. Right Ventricle Normal right ventricular size and function. Right ventricular systolic pressure within normal limits. Right Atrium Normal right atrial size. Left Atrium Normal left atrial size. Mitral Valve Structurally normal mitral valve. Mild mitral annular calcification. Mitral valve thickened. Trace mitral regurgitation. Aortic Valve Trileaflet aortic valve. No aortic valve stenosis or regurgitation. Tricuspid Valve Structurally normal tricuspid valve. Mild tricuspid regurgitation. Pulmonic Valve Structurally normal pulmonic valve. Pericardium No pericardial effusion. Aorta Normal size aortic root and proximal ascending aorta. CONCLUSIONS Normal LV size and function Previewed by: Dr. Savage Westfall MD (Electronically Signed) Final Date: 10 July 2023 13:25
== END 2023-07-09 18:37 | disposition home or self-care (01) ==
LOC: EC 15:03 → 6NMEDSUR 20:28
PROVIDERS: ADMIT Internal Medicine; ATTEND Internal Medicine
DX: R07.89 Other chest pain (principal); R55 Syncope and collapse; R04.2 Hemoptysis; R91.8 Other nonspecific abnormal finding of lung field; I25.10 Atherosclerotic heart disease of native coronary artery without angina pectoris; R06.02 Shortness of breath; R61 Generalized hyperhidrosis; R53.1 Weakness; G35 Multiple sclerosis; I10 Essential (primary) hypertension; M79.7 Fibromyalgia; G89.29 Other chronic pain; M54.9 Dorsalgia, unspecified; K21.9 Gastro-esophageal reflux disease without esophagitis; M19.09 Primary osteoarthritis, other specified site; F17.210 Nicotine dependence, cigarettes, uncomplicated; Z79.1 Long term (current) use of non-steroidal anti-inflammatories (NSAID); Z79.82 Long term (current) use of aspirin; Z79.899 Other long term (current) drug therapy; Z80.1 Family history of malignant neoplasm of trachea, bronchus and lung; Z71.6 Tobacco abuse counseling
CPT/HCPCS: 99285; 36415; 93005; 93306; 83880; 80053; 80048; 83735; 84484 ×2; 85025 ×2; 85610; 85730; 71275; G0378 ×2; S4990; Q9967

== ENCOUNTER → 2023-08-03 | Outpatient (CLI) | payer MEDICARE, OTHER ==
[2023-08-03 17:31] LABS: LDL Cholesterol,Calculated 161.6 mg/dL (0.0-131.0)
== END | disposition home or self-care (01) ==
LOC: LABWHC1 09:46
PROVIDERS: ATTEND Student in an Organized Health Care Education/Training Program
DX: E78.5 Hyperlipidemia, unspecified (principal)
CPT/HCPCS: 36415; 80061; 83036

== ENCOUNTER → 2023-08-05 | Outpatient (CLI) | payer MEDICARE, OTHER ==
--- NOTE | 2023-08-08 05:04 | PE ---
EXAMINATION TYPE: PET CT fusion skull to thigh DATE OF EXAM: 08/05/2023 COMPARISON: CT abdomen and pelvis June 03, 2014. CTA chest July 08, 2023 HISTORY: Lung mass , recent abnormal CT. TECHNIQUE: Following the intravenous administration of 10.98 mCi of F-18 FDG, whole body images are performed from the skull base to the midthigh. Images are reviewed on the computer in the coronal, a xial, and sagittal planes. Reconstructed rotating images are created on independent workstation and reviewed on the computer. A localization and attenuation correction CT is performed in conjunction with the PET scan. Blood glucose level equals 97. SCAN: Initial Scan FINDINGS: SKULL BASE AND NECK: No areas of abnormal hypermetabolic uptake. CHEST, MEDIASTINUM, AND HILAR REGION: Redemonstration of 4.6 x 4.2 cm right lower lobe mass axial valencia ge [address] with abnormal hypermetabolic uptake, max SUV is 20.72. Few prominent but subcentimeter mediasti nal lymph nodes in the AP window and right tracheobronchial window are identified. No abnormal hyperm etabolic enlarged lymph nodes. ABDOMEN AND PELVIS: No hypermetabolic adrenal masses. Normal excretion. No areas of abnormal hypermet abolic uptake. OSSEOUS STRUCTURES: No areas of abnormal hypermetabolic uptake. OTHER CT: At least moderate coronary artery calcification is redemonstrated. Cholecystectomy clips ar e redemonstrated. Multilevel disc space narrowing in the cervical spine. IMPRESSION: Hypermetabolic uptake in the right lower lobe 4.6 cm mass consistent with neoplasm. No de finitive abnormal adenopathy or metastatic disease seen.
== END | disposition home or self-care (01) ==
LOC: RADPETMAIN 08:01
PROVIDERS: ATTEND Internal Medicine Critical Care Medicine
DX: R91.8 Other nonspecific abnormal finding of lung field (principal)
CPT/HCPCS: 78815; A9552

== ENCOUNTER 2023-09-09 12:54 | Day surgery (SDC) | payer MEDICARE, OTHER ==
[2023-09-07 09:42] VITALS: BMI 30.9
[2023-09-09] MEDS: LACTATED RINGERS 1,000 ML IV SCH (13:44)
[2023-09-09] MEDS ORDERED: SUCCINYLCHOLINE CHLORIDE 200 MG/10 ML VIAL IV ONE (14:40)
[2023-09-09] MEDS ORDERED: LIDOCAINE 1% INJ 10MG/ML (20 ML MDV) ONE (14:40)
[2023-09-09] MEDS ORDERED: ROCURONIUM 10 MG/ML (5 ML VIAL) IV ONE (14:40)
[2023-09-09] MEDS ORDERED: ESMOLOL 100 MG/10 ML VIAL ONE (14:40)
[2023-09-09] MEDS ORDERED: NEOSTIGMINE 1 MG/ML 10 ML VIAL ONE (14:40)
[2023-09-09] MEDS ORDERED: GLYCOPYRROLATE 0.2 MG/ML 2 ML VIAL ONE (14:40)
[2023-09-09] MEDS ORDERED: fentaNYL (PF) 50 MCG/ML 2 ML AMP ONE (14:40)
[2023-09-09] MEDS ORDERED: PROPOFOL 10 MG/ML 20 ML VIAL IV ONE (14:40)
[2023-09-09] MEDS ORDERED: MIDAZOLAM 2 MG/2 ML VIAL ONE (14:40)
--- NOTE | 2023-09-09 14:46 | CT ---
EXAMINATION TYPE: CT chest wo con CT DLP: 520 mGycm, Automated exposure control for dose reduction was used. DATE OF EXAM: 09/09/2023 1:51 PM COMPARISON: . CT chest 07/08/2023. Correlation is made with PET/CT report from 08/05/2023 CLINICAL INDICATION:Female, 68 years old with history of ion bronchoscopy; PHH, pre surgical bronch-i on TECHNIQUE: Multiple axial images were obtained through the chest. Sagittal and coronal reformats were created for review. Contrast used: mL of (None if empty) Oral contrast used: (None if empty) FINDINGS: LUNGS/ PLEURA: 4.5 cm right lower lobe mass is present. The mass is solid and demonstrates spiculated margins. AIRWAY: Patent and unremarkable. HEART: Size within normal limits. MEDIASTINUM: No gross evidence of adenopathy. VASCULATURE: No aortic aneurysm. MUSCULOSKELETAL: No acute osseous abnormalities SOFT TISSUES/LYMPH NODES: Unremarkable. LOWER NECK: No significant findings. UPPER ABDOMEN: Cholecystectomy clips in the gallbladder fossa. No acute findings in the upper abdomen . IMPRESSION: No pneumothorax. 4.5 cm right lower lobe mass is identified (hypermetabolic on PET CT) Cholecystectomy clips in gallbladder fossa. Follow up recommendations for incidental pulmonary nodules, if there are any, are per [employer] or [employer]. https://radiopaedia.org/articles/yecaryyeqf-wakdaip-qndnbtnoy-[email or web address]?lang=us
--- NOTE | 2023-09-09 15:22 | P.PCN ---
Date of Procedure: 09/09/23 Operative Findings: Preoperative Diagnosis: Right lower lobe mass Postoperative Diagnosis: same Procedure(s) Performed: Flexible bronchoscopy Robotic-assisted bronchoscopy and addition to radial ultrasound evaluation of th e right lower lobe mass Robotic-assisted transbronchial needle aspirate, transbronchial biopsies of the right lower lobe mass in addition to a bronchioloalveolar lavage Anesthesia: PHOEBE Surgeon: Macrina Kolb Estimated Blood Loss (ml): 0 Pathology: other Condition: stable Disposition: same day Operative Findings: A physical exam was performed. Informed consent was obtained from the patient after explaining all the risks (pneumothorax, life threatening bleeding, infection and adverse effects due to medications), benefits and alternatives to the procedure which the patient appeared to understand and so stated. The patient was connected to the monitoring devices. General anesthesia was induced and the patient was intubated by anesthesia. A final timeout was performed and the procedure confirmed by the attending staff bronchoscopist. The bronchoscope was inserted and the airway examined. The flexible bronchoscope was removed and the robotic bronchoscope was inserted. Registration was completed. I next guided the robotic bronchoscope using the navigation system into the right lower lobe posterior segment. Once in proper position, the bronchoscope was frozen. The radial EBUS probe was placed through the bronchoscope and confirmed abnormal u/s images vs normal lung. A needle was placed through the working channel and under fluoroscopic guidance, we sampled the area thought to have the mass twice. We then used a cloud biopsy pattern with ultrasound confirmation for 2 additional passes with the needle. U/S evaluation was then used to reconfirm location. Forceps were next intro duced through working channel and extended the appropriate distance and 3 transbronchial biopsies were performed using fluoroscopic guidance. The u/s probe was then reinserted to confirm location. When confirmed this process was repeated for a total of 8-10 transbronchial biopsies. After reassessment with EBUS, a brush was placed through the extendable working channel for 1 pass with fluoroscopic guidance. U/S evaluation was then used to confirm location. 40ml of saline was then instilled into the area of the lesion. 10cc was aspiratred. . The robotic bronchoscope was removed and the airway inspected no evidence of any ongoing endobronchial bleeding. Flex. bronchoscope was inserted and regular suctioning was done. At the completion of the procedure, no residual secretions or bloody material within the airway. The bronchoscope was removed. The patient was extubated. FINDINGS: 1.The airways appeared normal 2 Successful navigation, ultrasonographic identification, and biopsies of right lower lobe mass 3.The the radial ultrasound view was eccentric/concentric RECOMMENDATIONS: Await pathology and cytology results The referring physician will be alerted to the results when available. The patient was advised to follow up with the referring physician with the biopsy results Patient will be called with results.
[2023-09-09] MEDS: LACTATED RINGERS 1,000 ML IV ONE (16:05)
--- NOTE | 2023-09-09 16:08 | XR ---
EXAMINATION TYPE: XR chest 1V DATE OF EXAM: 09/09/2023 COMPARISON: NONE HISTORY: Postbiopsy TECHNIQUE: Single frontal view of the chest is obtained. FINDINGS: There is no pneumothorax or pleural effusion. The small focal consolidated density in the right lung base medially consistent with the known mass identified on CT chest dated 09/09/2023. The heart and pulmonary vasculature are normal. The osseous structures are intact IMPRESSION: IMPRESSION: 1. No evidence of pneumothorax following biopsy. 2. Right lower lobe lung mass.
[2023-09-09 16:12] VITALS: TEMP 97
[2023-09-09 16:53] VITALS: BP 137/79; PULSE 58; RESP 20
--- NOTE | 2023-09-10 13:06 | FL ---
EXAMINATION TYPE: FL bronchoscopy DATE OF EXAM: 09/09/2023 FLUOROSCOPY Fluoroscopy time of 3 minutes 22 seconds was used during ion bronchoscopic biopsy. 1 image/s documen t/s the procedure. 3.7 Gycm2.
== END 2023-09-09 16:42 | disposition home or self-care (01) ==
LOC: ORWHC2ENDO 12:54
PROVIDERS: ATTEND Internal Medicine Critical Care Medicine
DX: C34.32 Malignant neoplasm of lower lobe, left bronchus or lung (principal); J44.9 Chronic obstructive pulmonary disease, unspecified; M79.7 Fibromyalgia; K21.9 Gastro-esophageal reflux disease without esophagitis; I10 Essential (primary) hypertension; M19.90 Unspecified osteoarthritis, unspecified site; F12.90 Cannabis use, unspecified, uncomplicated; Z79.82 Long term (current) use of aspirin; Z79.899 Other long term (current) drug therapy; Z79.1 Long term (current) use of non-steroidal anti-inflammatories (NSAID)
CPT/HCPCS: 88108; 88305; 88342; 71045; 71250; 31628; 31629; 31623; 31624; J2250; J0330; J2710; J2001; J3010; J2704; J1805; S2900

== ENCOUNTER → 2023-10-07 | Outpatient (CLI) | payer MEDICARE, OTHER ==
[2023-10-07 14:01] LABS: INR 0.9 (<1.2); Partial Thromboplastin Time 27.9 sec (22.0-30.0); Prothrombin Time 9.7 sec (10.0-12.5)
[2023-10-07 18:11] LABS: Basophils # (A) 0.04 X 10*3/uL (0.00-0.10); Basophils % (A) 0.5 %; Eosinophils # (A) 0.17 X 10*3/uL (0.04-0.35); Eosinophils % (A) 2.2 %; HCT 43.1 % (37.2-46.3); HGB 13.9 g/dL (12.0-15.0); Lymphocytes # (A) 2.42 X 10*3/uL (0.90-5.00); Lymphocytes % (A) 31.3 %; MCH 31.2 pg (27.0-32.0); MCHC 32.3 g/dL (32.0-37.0); MCV 96.9 FL (80.0-97.0); Mean Platelet Volume 10.6 FL (9.5-12.2); Monocytes # (A) 0.53 X 10*3/uL (0.20-1.00); Monocytes % (A) 6.8 %; NRBC Per 100 WBC 0 X 10*3/uL (0.00-0.01); Neutrophils # (A) 4.57 X 10*3/uL (1.80-7.70); Neutrophils % (A) 59.1 %; Platelet Count 256 X 10*3/uL (140-440); RBC 4.45 X 10*6/uL (4.10-5.20); WBC 7.74 X 10*3/uL (4.50-10.00)
[2023-10-07 18:20] LABS: Blood Urea Nitrogen 24.1 mg/dL (9.0-27.0); Carbon Dioxide 24.7 mmol/L (21.6-31.8); Chloride 106 mmol/L (96-109); Glucose 98 mg/dL (70-110); Potassium 4.2 mmol/L (3.5-5.5); Sodium 141 mmol/L (135-145)
[2023-10-07 20:25] LABS: Appearance,Urine Turbid (Clear); Bacteria,Urine 1+ (None Seen); Bilirubin,Urine Negative (Negative); Blood,Urine Small (Negative); Calcium Oxalate Crystals,Urine Present (None Seen); Color,Urine Yellow (Yellow); Ketones,Urine Trace (Negative); Mucus,Urine Present; Nitrite,Urine Negative (Negative); Specific Gravity,Urine 1.032 (1.001-1.030); Urobilinogen,Urine 0.2
== END | disposition home or self-care (01) ==
LOC: LABPAT 13:31
PROVIDERS: ATTEND Thoracic Surgery (Cardiothoracic Vascular Surgery)
DX: Z01.812 Encounter for preprocedural laboratory examination (principal); C78.00 Secondary malignant neoplasm of unspecified lung; E86.0 Dehydration; R58 Hemorrhage, not elsewhere classified; Z79.899 Other long term (current) drug therapy
CPT/HCPCS: 80051; 81001; 82565; 82947; 84520; 85025; 85610; 85730; 86850; 86900; 86901; 87086

== ENCOUNTER 2023-10-14 05:42 | Inpatient (IN) | payer MEDICARE, OTHER ==
[2023-10-14] MEDS ORDERED: LIDOCAINE 1% (10MG/ML) FOR IV START INTRADERMA PRN (05:57)
[2023-10-14] MEDS: ONDANSETRON 4 MG/2 ML VIAL IVP ONE (06:35)
[2023-10-14] MEDS: LACTATED RINGERS 1,000 ML IV SCH (06:36)
[2023-10-14] MEDS: ONDANSETRON 4 MG/2 ML VIAL ONE (06:36)
[2023-10-14] MEDS: IV FLUID CONTINUATION 1,000 ML IV ONE ×2 (06:37)
[2023-10-14] MEDS: MIDAZOLAM 2 MG/2 ML VIAL IVP ONE ×2 (06:44→07:00)
[2023-10-14] MEDS: fentaNYL (PF) 50 MCG/ML 2 ML AMP IVP ONE ×2 (06:45→07:15)
[2023-10-14] MEDS ORDERED: MIDAZOLAM 2 MG/2 ML VIAL IV PRN (07:00)
[2023-10-14] MEDS ORDERED: fentaNYL (PF) 50 MCG/ML 2 ML AMP IVP PRN (07:00)
[2023-10-14] MEDS ORDERED: ROPIVACAINE 5 MG/ML 30 ML VIAL ONE (07:43)
[2023-10-14] MEDS ORDERED: DEXAMETHASONE SOD PHOSPHATE 4 MG/ML 1 ML VIAL ONE (07:43)
[2023-10-14] MEDS ORDERED: MIDAZOLAM 2 MG/2 ML VIAL ONE (07:43)
[2023-10-14] MEDS ORDERED: KETAMINE HCL IN 0.9 % NACL 50 MG/5 ML SYRINGE ONE (07:43)
[2023-10-14] MEDS ORDERED: WATER FOR INJECTION, STERILE 10 ML VIAL IV ONE (07:43)
[2023-10-14] MEDS ORDERED: fentaNYL (PF) 50 MCG/ML 2 ML AMP ONE (07:43)
[2023-10-14] MEDS ORDERED: NEOSTIGMINE 1 MG/ML 10 ML VIAL ONE (07:43)
[2023-10-14] MEDS ORDERED: ONDANSETRON 4 MG/2 ML VIAL ONE (07:43)
[2023-10-14] MEDS ORDERED: LIDOCAINE 1% INJ 10MG/ML (20 ML MDV) ONE (07:43)
[2023-10-14] MEDS ORDERED: SUCCINYLCHOLINE CHLORIDE 200 MG/10 ML VIAL IV ONE (07:43)
[2023-10-14] MEDS ORDERED: ROCURONIUM 10 MG/ML (5 ML VIAL) IV ONE (07:43)
[2023-10-14] MEDS ORDERED: GLYCOPYRROLATE 0.2 MG/ML 2 ML VIAL ONE (07:43)
[2023-10-14] MEDS ORDERED: ePHEDrine 50 MG/ML 1 ML VIAL ONE (07:43)
[2023-10-14] MEDS ORDERED: LABETALOL 5 MG/ML VIAL MDV ONE (07:43)
[2023-10-14] MEDS ORDERED: PROPOFOL 10 MG/ML 20 ML VIAL IV ONE (07:43)
--- NOTE | 2023-10-14 08:30 | P.ANPRN ---
Procedure Note - Anesthesia - Nerve Block Performed Right Erector Spinae Single Time Out Performed: Yes Date of Procedure: 10/14/23 Procedure Start Time: :44 Procedure Stop Time: 06:50 Location of Patient: PreOp Indication: Acute Post-Operative Pain, Requested by Surgeon Sedation Type: Sedate with meaningful contact maintained Preparation: Sterile Prep Position: Sitting Needle Types: Pajunk Needle Gauge: 21 Ultrasound used to visualize needle placement: Yes Ultrasound used to observe medication spread: Yes Injectate: 0.5% Ropivacaine (see comment for volume) (30 ml + 4 mg Dexamethasone) Blood Aspirated: No Pain Paresthesia on Injection Noted: No Resistance on Injection: Normal Image Stored and Saved: Yes Events: Uneventful and Well Tolerated
--- NOTE | 2023-10-14 08:31 | P.ANPRN ---
Procedure Note - Anesthesia - Invasive Line Left Arterial Line Time Out Performed: Yes Date of Procedure: 10/14/23 Time of Procedure: 07:10 Preparation: Sterile Prep, Sterile Dressing Arterial Line Location: Briachial Ultrasound Used: Yes Purpose - Visualization and Identification of Vasculature: Yes Image Stored and Saved: Yes Narrative: Invasive line placement per sterile protocol utilized.
[2023-10-14] MEDS: GELATIN SPONGE,ABSORB (LARGE) 1 EACH SPONGE TOPICAL ONE (08:32)
[2023-10-14] MEDS: THROMBIN (BOVINE) 5,000 UNIT VIAL TOPICAL ONE (08:32)
[2023-10-14] MEDS: BUPIVACAINE (PF) 0.5% 30 ML VIAL SQ ONE ×2 (09:11→10:53)
--- NOTE | 2023-10-14 11:42 | P.OP ---
Date of Procedure: 10/14/23 Preoperative Diagnosis: Non-small cell cancer right lower lobe lung Postoperative Diagnosis: Same Procedure(s) Performed: Mediastinoscopy with lymph node biopsy and on table diagnosis, robotic assisted thoracoscopic right lower lobectomy with mediastinal lymph node dissection. Anesthesia: PHOEBE Surgeon: Elfego Rudd [employer] Load Builder #1: Dusty Villagran Estimated Blood Loss (ml): 100 IV fluids (ml): 1,800 Urine output (ml): 300 Pathology: other (Heart 10 and R4 lymph nodes from mediastinoscopy sent for frozen section and returned negative for metastatic carcinoma. Right upper lobe bronchus sent for frozen section and negative for carcinoma. Permanent sections include right upper lobe, lymph node stations R11, R8 and level 7) Condition: stable Disposition: PACU Indications for Procedure: 68-year-old female who was found to have a large right lower lobe mass in May and a screening CT scan. She quit smoking at that time. She underwent PET scan in July. She underwent robotic bronchoscopy with EBUS on September 07. PET scan showed significant uptake in the primary tumor and no evidence of metastatic disease. Robotic bronchoscopy diagnosed non-small cell lung carcinoma consistent with moderately differentiated squamous cell carcinoma. EBUS did not detect any significant lymphadenopathy and no biopsies were performed of the lymph nodes. I saw the patient in consultation 2 weeks ago. In comparing her initial CAT scan from May with the 1 performed in August for the robotic bronchoscopy, I felt there was slight increase in the mediastinal paratracheal adenopathy. I therefore recommended in addition to a right lower lobectomy that we start with a mediastinoscopy and ensure that we do not have N2 disease. Patient was scheduled for mediastinoscopy with lymph node biopsy, on table diagnosis and probable robotic assisted thoracoscopic right lower lobectomy with lymph node dissection. Preoperative cardiology clearance was obtained. Operative Findings: Anthracotic lymphadenopathy was noted on the mediastinoscopy. This was biopsied and sent for frozen section and returned negative for metastatic disease. Fissures were near complete. It was a large fairly central tumor in the right lower lobe. The majority of the lymph nodes were anthracotic and benign in appearance but there was an enlarged firm lymph node present in the hilum between the right lower lobe pulmonary artery and the right superior segmental pulmonary artery. Frozen section on the bronchial margin was negative. Description of Procedure: Patient was brought to the operating room and placed supine on the operating table. General anesthesia was induced. She was appropriately positioned for mediastinoscopy. The anterior neck and chest were sterilely prepped and draped. Transverse incision was made at the base of the neck and carried down through skin and subcutaneous tissue. It was continued in the midline between the strap muscles to the pretracheal plane inferior to the isthmus of the thyroid. Once we entered the pretracheal plane this was dissected down into the mediastinum using gentle blunt finger dissection. The mediastinal scope was introduced and the dissection carried down to the tracheal bifurcation. There was a small lymph node present at the base of the right mainstem bronchus and this was biopsied and sent for frozen section as R10 lymph node. We dissected in the right paratracheal region more proximally and encountered a fairly large anthracotic lymph node which was biopsied in several pieces and also sent for f rozen section. Both specimens returned negative for metastatic carcinoma. At this point it was decided to proceed with the lobectomy. Patient was repositioned and reprepped and draped in the left lateral decubitus position appropriately positioned for robotic lobectomy. The right chest was sterilely prepped and draped. Initial incision was made in the eighth interspace in the mid axillary line and an 8 mm robotic port was placed under single lung ventilation. After confirming position in the pleural space, CO2 insufflation was begun. 12 mm robotic ports were placed anteriorly and environmental scientist iorly did this in the same interspace and a second 8 mm port was placed posteriorly at the level of the superior segment of the right lower lobe. Working port was placed inferiorly at the level of the diaphragm between the 2 most medial ports. The robot was now docked. The fissures were explored and noted to be near complete. They were marked. Dissection was carried onto the inferior pulmonary ligament and it was divided upward. There was no artery 9 lymph node encountered. Dissection was continued posteriorly behind the inferior pulmonary vein and some markedly enlarged anthracotic are 8 lymph nodes were encountered. These were resected. Dissection was continued up along this plane and the level 7 lymph nodes were resected. Dissection was then carried onto the bronchus and the takeoff of the right upper lobe bronchus was identified. Just inferior to this was very large firm white lymph node. We began gentle dissection around this. Inferiorly it was adherent to the pulmona ry artery branch leading to the lower lobe and superiorly it was adherent to the pulmonary artery branch leading to the posterior segment of the right upper lobe. The node was completely dissected out and removed without injury to the pulmonary artery branches. There were some other R11 lymph nodes immediately adjacent and these were also biopsied and pulled with the abnormal lymph node specimen labeled R11. Dissection was now carried back onto the inferior pulmonary vein and it was encircled, ligated and divided with a robotic vascular stapler. Dissection was now carried up onto the bronchus intermedius and the takeoff of the right lower lobe bronchus was identified. Further R11 lymph nodes were resected in this area. This was encircled and the right lower lobe bronchus was ligated and divided with a robotic green stapler. We are now able to expose the pulmonary artery branches to the lower lobe. There was a branch of the pulmonary artery coming off fairly low to the middle lobe posteriorly and care was taken not to injure this vessel. Pulmonary artery branches to the right lower lobe were taken into with the basilar segmental branches of the superior segmental branch being taken separately. Both were taken using a robotic vascular stapler. We are now able to complete the fissures with multiple firings of Endo RANDY blue staplers. The lobectomy specimen was placed in a large Endo Catch bag. The robot was undocked and the working port incision enlarged to allow the lobectomy specimen and contained tumor to be removed in the Endo Catch bag. Specimen was examined on the back table and sent to pathology for frozen section of the bronchial margin which returned negative. Chest was irrigated with warm water. Sponge and needle counts were verified as correct. A 30 [place] chest tube was placed through the most anterior robotic incision, positioned posterior apically and secured with Ethibond suture. The lung was reinflated under thoracoscopic visualization and both lobes were noted to inflate well. Scope was removed and the incisions closed with layers of Vicryl suture. Skin glue and Band-Aid dressings were applied. Chest tube was connected to a Pleur-evac. Posterior rib blocks were performed at the level of the incisions with half percent Marcaine. The patient was turned supine, extubated and transferred to recovery in stable condition.
[2023-10-14] MEDS: HYDROmorphone 0.5 MG/0.5 ML SYRINGE IVP PRN (11:59)
--- NOTE | 2023-10-14 12:03 | XR ---
EXAMINATION TYPE: XR chest 1V portable DATE OF EXAM: 10/14/2023 COMPARISON: 09/09/2023 HISTORY: Post lower lobectomy TECHNIQUE: Single frontal view of the chest is obtained. FINDINGS: Volume loss in the right compatible with previous lobectomy. Subcutaneous air along the ri ght chest with no sizable pneumothorax. Chest tube noted on the right. Left lung clear. Heart size no rmal. Diffuse osteopenia, degenerative changes spine and arthropathy of the shoulders. IMPRESSION: 1. Postsurgical change with no sizable pneumothorax.
[2023-10-14] MEDS: droPERidol 5 MG/2 ML VIAL IVP ONE (12:59)
[2023-10-14] MEDS: HYDROmorphone 1 MG/ML 1 ML SYRINGE IVP STA (16:34)
[2023-10-14] MEDS: DEXAMETHASONE SOD PHOSPHATE 4 MG/ML 1 ML VIAL IV ONE (17:22)
[2023-10-14] MEDS ORDERED: bisacodyL 10 MG SUPP RECTAL PRN (17:23)
[2023-10-14] MEDS ORDERED: GABAPENTIN 300 MG CAP PO PRN (17:23)
[2023-10-14] MEDS ORDERED: ONDANSETRON 4 MG/2 ML VIAL IVP PRN (17:23)
[2023-10-14] MEDS: DEXTROSE 5%-0.45% NACL 1,000 ML IV SCH (17:36)
[2023-10-14] MEDS: KETOROLAC 15 MG/ML 1 ML VIAL IVP SCH (17:36)
[2023-10-14] MEDS: METOCLOPRAMIDE 5 MG/ML 2 ML VIAL IVP PRN (17:37)
[2023-10-14 18:15] LABS: Basophils % (A) 0 %; Eosinophils # (A) 0.1 k/uL (0-0.7); Eosinophils % (A) 1 %; HCT 41.7 % (34.0-46.0); HGB 13.5 gm/dL (11.4-16.0); Lymphocytes # (A) 1.2 k/uL (1.0-4.8); Lymphocytes % (A) 10 %; MCH 31.7 pg (25.0-35.0); MCHC 32.5 g/dL (31.0-37.0); MCV 97.7 fL (80.0-100.0); Mean Platelet Volume 8.6; Monocytes # (A) 0.6 k/uL (0-1.0); Monocytes % (A) 5 %; Neutrophils # (A) 10.2 k/uL (1.3-7.7); Neutrophils % (A) 84 %; Platelet Count 246 k/uL (150-450); RBC 4.27 m/uL (3.80-5.40); RDW 12.5 % (11.5-15.5); WBC 12.1 k/uL (3.8-10.6)
[2023-10-14 18:28] LABS: African American GFR (CKD) >90 (>60 ml/min/1.73 sqM); Anion Gap 6 mmol/L; Blood Urea Nitrogen 14 mg/dL (7-17); Calcium 8.5 mg/dL (8.4-10.2); Carbon Dioxide 25 mmol/L (22-30); Chloride 105 mmol/L (98-107); Glucose 162 mg/dL (74-99); Non-African American GFR(CKD) >90 (>60 ml/min/1.73 sqM); Potassium 4.3 mmol/L (3.5-5.1); Sodium 136 mmol/L (137-145)
[2023-10-14] MEDS: HEPARIN SODIUM,PORCINE 5,000 UNIT/ML 1 ML VIAL SQ SCH (20:09)
[2023-10-14] MEDS: HYDROcodone/APAP 10-325MG 1 EACH TAB PO PRN (20:09)
[2023-10-14] MEDS: IPRATROPIUM-ALBUTEROL 3 ML NEB IH SCH (20:19)
[2023-10-14] MEDS: FORMOTEROL FUMARATE 20 MCG/2 ML NEBU INHALATION SCH (21:22)
[2023-10-15] MEDS: HYDROmorphone 1 MG/ML 1 ML SYRINGE IVP PRN (01:43)
--- NOTE | 2023-10-15 08:06 | XR ---
EXAMINATION TYPE: XR chest 1V DATE OF EXAM: 10/15/2023 COMPARISON: 10/14/2019 HISTORY: Postop TECHNIQUE: Single frontal view of the chest is obtained. FINDINGS: Volume loss in the right compatible with previous lobectomy. Subcutaneous air along the ri ght chest with no sizable pneumothorax. Chest tube noted on the right. Left lung clear. Heart size no rmal. Diffuse osteopenia, degenerative changes spine and arthropathy of the shoulders. IMPRESSION: Postsurgical change with no sizable pneumothorax.
[2023-10-15] MEDS: ESCITALOPRAM 5 MG TAB PO SCH (08:45)
[2023-10-15] MEDS: PANTOPRAZOLE 40 MG TABLET PO SCH (08:45)
[2023-10-15] MEDS: ASPIRIN 81 MG PO SCH (08:45)
[2023-10-15] MEDS: lisinopriL 10 MG TAB PO SCH (08:45)
[2023-10-15 09:44] LABS: Basophils % (A) 0 %; Eosinophils # (A) 0.1 k/uL (0-0.7); Eosinophils % (A) 1 %; HCT 39.3 % (34.0-46.0); HGB 12.4 gm/dL (11.4-16.0); Lymphocytes % (A) 22 %; MCH 31.2 pg (25.0-35.0); MCHC 31.5 g/dL (31.0-37.0); MCV 99.1 fL (80.0-100.0); Monocytes # (A) 0.5 k/uL (0-1.0); Monocytes % (A) 5 %; Neutrophils # (A) 6.6 k/uL (1.3-7.7); Neutrophils % (A) 71 %; Platelet Count 253 k/uL (150-450); RBC 3.97 m/uL (3.80-5.40); RDW 12.3 % (11.5-15.5); WBC 9.3 k/uL (3.8-10.6)
[2023-10-15 10:04] LABS: African American GFR (CKD) >90 (>60 ml/min/1.73 sqM); Anion Gap 4 mmol/L; Blood Urea Nitrogen 13 mg/dL (7-17); Calcium 8.9 mg/dL (8.4-10.2); Carbon Dioxide 30 mmol/L (22-30); Chloride 104 mmol/L (98-107); Glucose 102 mg/dL (74-99); Non-African American GFR(CKD) 83 (>60 ml/min/1.73 sqM); Potassium 3.9 mmol/L (3.5-5.1); Sodium 138 mmol/L (137-145)
--- NOTE | 2023-10-15 11:11 | P.PN ---
Subjective Progress Note Date: 10/15/23 Principal diagnosis: Non-small cell cancer right lower lobe lung. Past medical history significant for hypertension, hyperlipidemia, COPD, history of pleurisy, gastroesophageal re flux disease, fibromyalgia, hemoptysis, osteoarthritis, history of nicotine dependence, quit smoking in June 2023 and use of marijuana. POD #1 Mediastinoscopy with lymph node biopsy and on table diagnosis, robotic assisted thoracoscopic right lower lobectomy with mediastinal lymph node dissection. Patient was seen and examined in follow-up today October 15, 2023 at her bedside on the third floor cardiac stepdown unit. She is currently sitting up to the bedside chair, is awake, alert, oriented x 3 and is in no acute apparent distress. She denies any complaints of shortness of breath at this time, although is complaining of some surgical type pain to her chest tube insertion site, currently rating her pain 4-5 out of 10 on the pain scale. She states that the pain medicine she is taking is controlling her pain. Oxygen saturations are 97% on room air and she is achieving 1250 mL on her incentive spirometry with encouragement. Right pleural chest tube remains in place to waterseal. No air leak is present. Draining thin serosanguineous drainage with 150 mL output in the last 8 hours and 340 mL output since surgery. Swann catheter is in place with 900 mL of urine output in the last 8 hours. She remains hemodynamically stable and is currently on no inotropic or pressor support. She has been up ambulating and tolerating it well. Chest x-ray and laboratory results reviewed. Surgical pathology results remain pending. Objective - Vital Signs Vital signs: Vital Signs Temp 97.0 F L 10/15/23 04:00 Pulse 74 10/15/23 09:12 Resp 18 10/15/23 04:00 BP 139/64 10/15/23 04:00 Pulse Ox 97 10/15/23 08:51 FiO2 Intake & Output 10/14/23 10/15/23 10/15/23 18:59 06:59 18:59 Intake Total 2918 360 Output Total 945 1200 Balance 1973 -1200 360 Intake: IV 2800 Oral 118 360 Output: Chest Tube Drainage 300 Chest Tube Right Lateral 300 Chest Urine 735 900 Pleural Fluid 110 Estimated Blood Loss 100 Other: Voiding Method Indwelling Catheter - Exam CONSTITUTIONAL: Appears comfortable, cooperative, no acute distress RESPIRATORY: Lungs sounds diminished bilaterally. Respirations symmetrical, nonlabored. Currently on room air with oxygen saturation 97%. Able to achieve 1250 mL on incentive spirometry. Strong cough. CARDIOVASCULAR: S1, S2 present. Regular rate and rhythm, sinus rhythm on telemetry. Palpable peripheral pulses bilaterally. No edema present. No calf pain or tenderness noted. SCDs present. GASTROINTESTINAL: Abdomen soft, nontender, nondistended. Active bowel sounds present 4 quadrants. Tolerating diet. Positive bowel movement. GENITOURINARY: Continues to void clear, yellow urine INTEGUMENTARY: Skin is warm and dry with no clubbing or cyanosis. Right chest thoracic incision well approximated and covered with dry intact dressing. NEUROLOGIC: Cranial nerves II through XII intact. No focal deficits. MUSKULOSKELETAL: Able to move all extremities, strength equal bilaterally, gait normal. PSYCHIATRIC: Alert and oriented to person place and time, appropriate affect, intact judgment and insight. INVASIVE LINES AND TUBES: Right pleural chest tubes present and connected to waterseal, no air leaks present. Right pleural chest tube with 150 mL serosanguineous drainage overnight, 300 mL last 24 hours. - Allied health notes Allied health notes reviewed: nursing - Labs CBC & Chem 7: 10/15/23 08:56 10/15/23 08:56 Labs: Abnormal Lab Results - Last 24 Hours (Table) 10/14/23 10/14/23 10/15/23 Range/Units 17:47 18:06 08:56 WBC 12.1 H (3.8-10.6) k/uL Neutrophils # 10.2 H (1.3-7.7) k/uL Sodium 136 L (137-145) mmol/L Glucose 162 H 102 H (74-99) mg/dL - Imaging and Cardiology Chest x-ray: report reviewed, image reviewed Assessment and Plan Assessment: Non-small cell cancer right lower lobe, status post robotic assisted thoracoscopic right lower lobectomy with mediastinal lymph node dissection Hypertension Hyperlipidemia COPD with a preoperative FEV1 79% of predicted value with an actual volume of 2.09 L History of pleurisy History of hemoptysis Fibromyalgia Osteoarthritis Gastroesophageal reflux disease History of nicotine dependence, quit smoking in June 2023 History of marijuana use Plan: Keep right pleural chest tube in place to waterseal. Continue to record strict output. Encourage use of incentive spirometry 10 times every hour while awake. Continue to monitor daily chest x-rays. Continue to follow surgical pathology results. Out of bed for all meals, increase activity as tolerated. Discharge planning is in place, anticipate discharge home in the next 24 hours. Pain control per current as needed orders. More recommendations to follow based on patient's clinical course. Time with Patient: Greater than 30
--- NOTE | 2023-10-15 16:46 | P.CNPUL ---
History of Present Illness Consult date: 10/15/23 Requesting physician: Elfego Rudd Reason for consult: other (Non-small cell lung cancer and COPD) Chief complaint: Status post mediastinoscopy with lymph node biopsy, right lower lobectomy History of present illness: This is a 68-year-old female normally sees Dr. Gupta, patient was found to have right lower lobe mass in May on a screening CT of the chest. Patient underwent PET scan in July, underwent robotic bronchoscopy with EBUS by Dr. Kolb on September 07. PET scan showed significant uptake in the primary tumor and no evidence of metastatic disease. 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 EBUS did not detect any significant lymphadenopathy and no biopsies were performed from the lymph nodes. Patient was referred to Dr. Rudd, and yesterday she underwent mediastinoscopy with lymph node biopsy and on table diagnoses robotic assisted thoracoscopic right lower lobectomy with mediastinal lymph node dissection. Postoperatively patient was admitted to cardiac floor, and we were asked to see on consultation for her underlying COPD. Patient is doing well, she is relatively asymptomatic, does not seem to be in any form of distress. During my evaluation, patient was on room air. Chest x-ray today showed postsurgical changes and no sizable pneumothorax, right-sided chest tube is noted, Review of Systems REVIEW OF SYSTEMS: CONSTITUTIONAL: Negative. EYES: Negative. ENT: Negative. CARDIAC: Negative. PULMONARY: As above. GI: Negative. GENITOURINARY: Negative. MUSCULOSKELETAL: Negative. SKIN: Negative. NEUROPSYCH: Negative. ENDOCRINE: Negative. HEMATOLOGIC: Negative. Past Medical History Past Medical History: Cancer, GERD/Reflux, Hypertension, Osteoarthritis (OA) Additional Past Medical History / Comment(s): right lower lobe lung cancer-Dx August 2023-no tx yet, pleurisy, migraines, "slow heart rate", diarrhea on and off History of Any Multi-Drug Resistant Organisms: None Reported Past Surgical History: Cholecystectomy, Orthopedic Surgery Additional Past Surgical History / Comment(s): reyes knee arthroscopy, left shoulder arthroscopy Past Anesthesia/Blood Transfusion Reactions: No Reported Reaction Additional Past Anesthesia/Blood Transfusion Reaction / Comment(s): no blood transfusion Smoking Status: Former smoker - Past Family History Father Family Medical History: Cancer Additional Family Medical History / Comment(s): colon Mother Family Medical History: Cancer Additional Family Medical History / Comment(s): multiple myeloma Medications and Allergies Home Medications Medication Instructions Recorded Confirmed Type Omeprazole 20 mg PO QAM 02/24/16 10/14/23 History Aspirin EC [Ecotrin Low Dose] 81 mg PO DAILY 07/08/23 10/14/23 History Escitalopram [Lexapro] 5 mg PO QAM 07/08/23 10/14/23 History Gabapentin 600 mg PO QID PRN 07/08/23 10/14/23 History HYDROcodone/APAP 10-325MG [[place] 1 tab PO TID PRN 07/08/23 10/14/23 History 10-325] Meloxicam [Mobic] 15 mg PO DAILY 07/08/23 10/14/23 History lisinopriL [Zestril] 10 mg PO QAM 07/08/23 10/14/23 History Allergies Allergy/AdvReac Type Severity Reaction Status Date / Time No Known Allergies Allergy Verified 10/14/23 06:04 Physical Exam Vitals: Vital Signs Temp Pulse Pulse Resp BP Pulse Ox 10/15/23 16:13 70 10/15/23 15:59 68 10/15/23 12:18 70 10/15/23 12:05 72 10/15/23 12:00 97.8 F 52 L 18 146/70 100 10/15/23 09:12 74 10/15/23 09:00 72 10/15/23 08:59 74 10/15/23 08:51 70 97 10/15/23 08:20 97.9 F 78 18 142/65 98 10/15/23 04:00 97.0 F L 84 18 139/64 97 10/15/23 02:00 18 10/15/23 00:00 97.9 F 84 18 164/79 100 10/14/23 21:41 78 10/14/23 21:34 75 10/14/23 21:33 75 10/14/23 21:23 74 10/14/23 20:00 98.2 F 90 16 116/70 97 10/14/23 18:31 86 16 158/87 98 10/14/23 17:41 85 18 178/97 98 10/14/23 17:25 88 18 197/101 98 Intake and Output 10/15/23 10/15/23 10/15/23 06:59 14:59 22:59 Intake Total 360 Output Total 1050 1100 Balance -1050 -740 Intake: Oral 360 Output: Chest Tube Drainage 150 100 Chest Tube Right Lateral 150 100 Chest Urine 900 1000 Uretheral (Swann) 1000 Other: Voiding Method Indwelling Catheter General: Reveals 68-year-old female in no distress RESPIRATORY: Good breath sound bilaterally no rhonchi no wheezes. Right-sided chest tube is noted. Connected to waterseal, no air leak noted had 300 mL serosanguineous drainage in the last 24 hours. CARDIOVASCULAR: Distant S1-S2, no S3 gallop. GASTROINTESTINAL: Soft nontender no megaly no rebound no guarding INTEGUMENTARY: Skin: Showed no rashes. NEUROLOGIC: Alert oriented x 3 no gross focal deficit MUSKULOSKELETAL: No deformities and no limitation range of motion PSYCHIATRIC: Normal mood affect and no mental status examination Extremities: No clubbing edema or cyanosis Results - Laboratory Findings CBC and BMP: 10/15/23 08:56 10/15/23 08:56 Abnormal lab findings: Abnormal Labs 10/14/23 10/14/23 10/15/23 17:47 18:06 08:56 WBC 12.1 H Neutrophils # 10.2 H Sodium 136 L Glucose 162 H 102 H - Diagnostic Findings Chest x-ray: image reviewed (Chest x-ray as noted in HPI) Assessment and Plan Assessment: Impression: Non-small cell lung cancer involving right lower lobe/squamous cell carcinoma status post robotic assisted thoracoscopic right lower lobectomy and mediastinal node dissection postoperative day #1 Mild COPD, FEV1 in the range of 79% Dyslipidemia Fibromyalgia GERD without esophagitis Ex-smoker quit in June 18, 2001 4 Degenerative joint disease Recommendation: Continue present supportive care measures Continue incentive spirometry Ambulation Possible removal of chest tube in the next 24 to 48 hours presently on waterseal and there is no air leak Monitor daily x-rays of the chest Pain control Will continue to Time with Patient: Greater than 30
--- NOTE | 2023-10-16 07:06 | XR ---
EXAMINATION TYPE: XR chest 1V portable DATE OF EXAM: 10/16/2023 COMPARISON: 10/14/2023 HISTORY: Right lower lobe lobectomy TECHNIQUE: Single frontal view of the chest is obtained. FINDINGS: There is no change in the right-sided chest tube. There is mild increase in the subcutaneous emphysem a noted in the right lateral chest soft tissues. There is been interval development of a small right pneumothorax. There is volume loss on the right with moderate elevation the right hemidiaphragm. Left lung is clear. Heart size is normal and the pulmonary vasculature is not congested. IMPRESSION: 1. Interval development of a small right apical pneumothorax. 2. Right-sided volume loss secondary to the pneumothorax and right lower lobe lobectomy
--- NOTE | 2023-10-16 11:08 | P.PN ---
Subjective Progress Note Date: 10/16/23 Principal diagnosis: Non-small cell cancer right lower lobe lung. Past medical history significant for hypertension, hyperlipidemia, COPD, history of pleurisy, gastroesophageal re flux disease, fibromyalgia, hemoptysis, osteoarthritis, history of nicotine dependence, quit smoking in June 2023 and use of marijuana. POD #2 Mediastinoscopy with lymph node biopsy and on table diagnosis, robotic assisted thoracoscopic right lower lobectomy with mediastinal lymph node dissection. Patient was seen and examined in follow-up today at her bedside on the third floor cardiac stepdown unit. She is currently sitting up to the bedside chair, is awake, alert, oriented x 3 and is in no acute apparent distress. She denies any complaints of pain or shortness of breath at this time. She states that her pain medication is controlling her pain well. Oxygen saturations are 98% on room air and she is achieving 2000 mL on her incentive spirometry with encouragement. Right pleural chest tube remains in place to waterseal. No air leak is present. Draining thin serosanguineous drainage with 80 mL output in the last 8 hours and 230 mL output in the last 24 hours. Remote telemetry is showing normal sinus rhythm heart rate 82 bpm. Surgical pathology results remain pending. Chest x-ray results reviewed. Objective - Vital Signs Vital signs: Vital Signs Temp 97.4 F L 10/16/23 04:00 Pulse 80 10/16/23 09:26 Resp 16 10/16/23 04:00 BP 169/70 10/16/23 04:00 Pulse Ox 98 10/16/23 09:14 FiO2 Intake & Output 10/15/23 10/16/23 10/16/23 18:59 06:59 18:59 Intake Total 720 240 Output Total 1140 190 Balance -420 50 Intake: Oral 720 240 Output: Chest Tube Drainage 140 120 Chest Tube Right Lateral 140 120 Chest Drainage 70 Right Chest 70 Urine 1000 Uretheral (Swann) 1000 Other: Voiding Method Toilet # Voids 1 - Exam CONSTITUTIONAL: Appears comfortable, cooperative, no acute distress RESPIRATORY: Lungs sounds diminished bilaterally, few scattered expiratory wheezes to right lobes. Respirations symmetrical, nonlabored. Currently on room air with oxygen saturation 98%. Able to achieve 2000 mL on incentive spirometry. Strong cough. CARDIOVASCULAR: S1, S2 present. Regular rate and rhythm, sinus rhythm on telemetry. Palpable peripheral pulses bilaterally. No edema present. No calf pain or tenderness noted. SCDs present. GASTROINTESTINAL: Abdomen soft, nontender, nondistended. Active bowel sounds present 4 quadrants. Tolerating diet. Positive bowel movement. GENITOURINARY: Continues to void. INTEGUMENTARY: Skin is warm and dry with no clubbing or cyanosis. Right chest thoracic incision well approximated and covered with dry intact dressing. NEUROLOGIC: Cranial nerves II through XII intact. No focal deficits. MUSKULOSKELETAL: Able to move all extremities, strength equal bilaterally, gait normal. PSYCHIATRIC: Alert and oriented to person place and time, appropriate affect, intact judgment and insight. INVASIVE LINES AND TUBES: Right pleural chest tubes present and connected to waterseal, no air leaks present. Right pleural chest tube with 80 mL serosanguineous drainage overnight, 230 mL last 24 hours. - Allied health notes Allied health notes reviewed: nursing - Labs CBC & Chem 7: 10/15/23 08:56 10/15/23 08:56 Labs: Abnormal Lab Results - Last 24 Hours (Table) 10/15/23 Range/Units 08:56 Glucose 102 H (74-99) mg/dL - Imaging and Cardiology Chest x-ray: report reviewed, image reviewed Assessment and Plan Assessment: Non-small cell cancer right lower lobe, status post robotic assisted thoracoscop ic right lower lobectomy with mediastinal lymph node dissection Hypertension Hyperlipidemia COPD with a preoperative FEV1 79% of predicted value with an actual volume of 2.09 L History of pleurisy History of hemoptysis Fibromyalgia Osteoarthritis Gastroesophageal reflux disease History of nicotine dependence, quit smoking in June 2023 History of marijuana use Plan: We will place her right pleural chest tube to low continuous wall suction -20 cm H2O. Likely remove the chest tube tomorrow October 17, 2023. Encourage use of incentive spirometry 10 times every hour while awake. Continue to follow surgical pathology results. Out of bed for all meals, increase activity as tolerated. Discharge planning is in place, anticipate discharge home in the next 24 hours. Pain control per current as needed orders. More recommendations to follow based on patient's clinical course. Time with Patient: Less than 30
--- NOTE | 2023-10-16 13:00 | P.PN ---
Subjective Progress Note Date: 10/16/23 This is a 68-year-old female normally sees Dr. Gupta, patient was found to have right lower lobe mass in May on a screening CT of the chest. Patient underwent PET scan in July, underwent robotic bronchoscopy with EBUS by Dr. Kolb on September 07. PET scan showed significant uptake in the primary tumor and no evidence of metastatic disease. 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 EBUS did not detect any significant lymphadenopathy and no biopsies were performed from the lymph nodes. Patient was referred to Dr. Rudd, and yesterday she underwent mediastinoscopy with lymph node biopsy and on table diagnoses robotic assisted thoracoscopic right lower lobectomy with mediastinal lymph node dissection. Postoperatively patient was admitted to cardiac floor, and we were asked to see on consultation for her underlying COPD. Patient is doing well, she is relatively asymptomatic, does not seem to be in any form of distress. During my evaluation, patient was on room air. Chest x-ray today showed postsurgical changes and no sizable pneumothorax, right-sided chest tube is noted, The patient is seen today October 16, 2023 in follow-up on the selective care unit. She is currently awake and alert in no acute distress. Sitting up in a chair at the bedside. Maintaining O2 saturations in the 90s on room air. Chest tube remains in place. No leak noted. Chest x-ray reveals interval development of a soft small right apical pneumothorax. Placed to wall suction. Right-sided volume loss secondary to pneumothorax and right lower lobe lobectomy. She is working well with the incentive spirometer. She remains on bronchodilators. Heparin for DVT prophylaxis. Objective - Vital Signs Vital signs: Vital Signs Temp 97.4 F L 10/16/23 04:00 Pulse 98 10/16/23 12:20 Resp 16 10/16/23 08:00 BP 151/77 10/16/23 08:00 Pulse Ox 98 10/16/23 09:14 FiO2 Intake & Output 10/15/23 10/16/23 10/16/23 18:59 06:59 18:59 Intake Total 720 240 Output Total 1140 190 Balance -420 50 Intake: Oral 720 240 Output: Chest Tube Drainage 140 120 Chest Tube Right Lateral 140 120 Chest Drainage 70 Right Chest 70 Urine 1000 Uretheral (Swann) 1000 Other: Voiding Method Toilet Toilet # Voids 1 - Exam GENERAL EXAM: Alert, pleasant 68-year-old female, up in a chair, on room air, fairly comfortable in no apparent distress. HEAD: Normocephalic. EYES: Normal reaction of pupils, equal size. NOSE: Clear with pink turbinates. THROAT: No erythema or exudates. NECK: No masses, no JVD. CHEST: No chest wall deformity. Right-sided chest tube remains in place to Pleur-evac and wall suction LUNGS: Equal air entry with crackles in the right base, diminished. CVS: S1 and S2 normal with no audible murmur, regular rhythm. ABDOMEN: No hepatosplenomegaly, normal bowel sounds, no guarding or rigidity. SPINE: No scoliosis or deformity SKIN: No rashes CENTRAL NERVOUS SYSTEM: No focal deficits, tone is normal in all 4 extremities. EXTREMITIES: There is no peripheral edema. No clubbing, no cyanosis. Peripheral pulses are intact. - Labs CBC & Chem 7: 10/15/23 08:56 10/15/23 08:56 Assessment and Plan Assessment: Non-small cell lung cancer involving right lower lobe/squamous cell carcinoma status post robotic assisted thoracoscopic right lower lobectomy and mediastinal node dissection postoperative day #2 Mild COPD, FEV1 in the range of 79% Dyslipidemia Fibromyalgia GERD without esophagitis Ex-smoker quit in June 18, 2001 4 Degenerative joint disease Plan: The patient was seen and evaluated Chest x-ray and medications reviewed Small right apical pneumothorax Chest tube remains to wall suction Follow-up chest x-ray in a.m. Stable and on room air Continue bronchodilators Continue the incentive spirometer We will continue to follow I have personally seen and examined the patient, performed the documentation and the assessment and plan as written. Number of minutes spent on the visit: 10.
[2023-10-17] MEDS: IPRATROPIUM-ALBUTEROL 3 ML NEB IH PRN (04:31)
--- NOTE | 2023-10-17 07:30 | XR ---
EXAMINATION TYPE: XR chest 1V portable DATE OF EXAM: 10/17/2023 COMPARISON: 10/16/2023 HISTORY: Right lower lobe lobectomy follow-up TECHNIQUE: Single frontal view of the chest is obtained. FINDINGS: There is no change in the position of the right chest tube or a mild subcutaneous emphysem a along the right lateral chest wall. There is no change in the elevation of the right hemidiaphragm consistent with history of lobectomy and volume loss. The lungs are clear no pneumonic infiltrate. There is no pleural effusion. The small right apical pneumothorax is stable. The heart size is normal and there is no pulmonary vascular congestion. The osseous structures are intact IMPRESSION: No change in the small right apical pneumothorax. No acute cardiopulmonary disease.
--- NOTE | 2023-10-17 09:38 | P.PN ---
Subjective Progress Note Date: 10/17/23 Principal diagnosis: Non-small cell cancer right lower lobe lung. Past medical history significant for hypertension, hyperlipidemia, COPD, history of pleurisy, gastroesophageal re flux disease, fibromyalgia, hemoptysis, osteoarthritis, history of nicotine dependence, quit smoking in June 2023 and use of marijuana. POD #3 Mediastinoscopy with lymph node biopsy and on table diagnosis, robotic assisted thoracoscopic right lower lobectomy with mediastinal lymph node dissection. The patient was seen and examined in follow-up today October 17, 2023 at her bedside on the third floor cardiac stepdown unit. The patient is currently laying in bed, is awake, alert, oriented x 3 and is in no acute apparent distress. She denies any complaints of pain or shortness of breath at this time. Chest x-ray yesterday showed a small right-sided pneumothorax and her right pleural chest tube was placed to low continuous wall suction -20 cm H2O. The right pleural chest tube was removed from low continuous wall suction this morning with a small intermittent airleak with coughing present. Draining thin serosanguineous drainage with 70 mL output in the last 8 hours and 200 mL output in the last 24 hours. Chest x-ray this morning continues to demonstrate a small right apical pneumothorax. Remote telemetry showing normal sinus rhythm heart rate 89 bpm. Surgical pathology results remain pending. Objective - Vital Signs Vital signs: Vital Signs Temp 97.9 F 10/17/23 04:00 Pulse 98 10/17/23 09:18 Resp 16 10/17/23 04:00 BP 155/85 10/17/23 04:00 Pulse Ox 100 10/17/23 08:51 FiO2 Intake & Output 10/16/23 10/17/23 10/17/23 18:59 06:59 18:59 Intake Total 236 118 Output Total 50 90 Balance 186 -90 118 Intake: Oral 236 118 Output: Chest Tube Drainage 50 90 Chest Tube Right Lateral 50 90 Chest Other: Voiding Method Toilet Toilet # Voids 2 - Exam CONSTITUTIONAL: Appears comfortable, cooperative, no acute distress RESPIRATORY: Lungs sounds diminished bilaterally, few scattered expiratory wheezes to right lobes. Respirations symmetrical, nonlabored. Currently on room air with oxygen saturation 100%. Able to achieve 2000 mL on incentive spirometry. Strong cough. CARDIOVASCULAR: S1, S2 present. Regular rate and rhythm, sinus rhythm on telemetry. Palpable peripheral pulses bilaterally. No edema present. No calf pain or tenderness noted. SCDs present. GASTROINTESTINAL: Abdomen soft, nontender, nondistended. Active bowel sounds present 4 quadrants. Tolerating diet. GENITOURINARY: Continues to void. INTEGUMENTARY: Skin is warm and dry with no clubbing or cyanosis. Right chest thoracic incision well approximated and covered with dry intact dressing. NEUROLOGIC: Cranial nerves II through XII intact. No focal deficits. MUSKULOSKELETAL: Able to move all extremities, strength equal bilaterally, gait normal. PSYCHIATRIC: Alert and oriented to person place and time, appropriate affect, intact judgment and insight. INVASIVE LINES AND TUBES: Right pleural chest tubes present and connected to waterseal, no air leaks present. Right pleural chest tube with 70 mL serosanguineous drainage overnight, 200 mL last 24 hours. - Allied health notes Allied health notes reviewed: nursing - Labs CBC & Chem 7: 10/15/23 08:56 10/15/23 08:56 - Imaging and Cardiology Chest x-ray: report reviewed, image reviewed Assessment and Plan Assessment: Non-small cell cancer right lower lobe, status post robotic assisted thoracoscopic right lower lobectomy with mediastinal lymph node dissection Hypertension Hyperlipidemia COPD with a preoperative FEV1 79% of predicted value with an actual volume of 2.09 L History of pleurisy History of hemoptysis Fibromyalgia Osteoarthritis Gastroesophageal reflux disease History of nicotine dependence, quit smoking in June 2023 History of marijuana use Plan: We will place her right pleural chest tube to waterseal and continue to monitor for airleak resolution. Likely remove the chest tube tomorrow October 18, 2023. Encourage use of incentive spirometry 10 times every hour while awake. Continue to follow surgical pathology results. Out of bed for all meals, increase activity as tolerated. Discharge planning is in place, anticipate discharge home in the next 24 hours. Pain control per current as needed orders. More recommendations to follow based on patient's clinical course. Time with Patient: Greater than 30
--- NOTE | 2023-10-17 14:28 | P.PN ---
Subjective Progress Note Date: 10/17/23 Principal diagnosis: POD #3 Mediastinoscopy with lymph node biopsy and on table diagnosis, robotic assisted thoracoscopic right lower lobectomy with mediastinal lymph node dissect ion. This is a 68-year-old female normally sees Dr. Gupta, patient was found to have right lower lobe mass in May on a screening CT of the chest. Patient underwent PET scan in July, underwent robotic bronchoscopy with EBUS by Dr. Kolb on September 07. PET scan showed significant uptake in the primary tumor and no evidence of metastatic disease. 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 EBUS did not detect any significant lymphadenopathy and no biopsies were performed from the lymph nodes. Patient was referred to Dr. Rudd, and yesterday she underwent mediastinoscopy with lymph node biopsy and on table diagnoses robotic assisted thoracoscopic right lower lobectomy with mediastinal lymph node dissection. Postoperatively patient was admitted to cardiac floor, and we were asked to see on consultation for her underlying COPD. Patient is doing well, she is relatively asymptomatic, does not seem to be in any form of distress. During my evaluation, patient was on room air. Chest x-ray today sh owed postsurgical changes and no sizable pneumothorax, right-sided chest tube is noted, The patient is seen today October 16, 2023 in follow-up on the selective care unit. She is currently awake and alert in no acute distress. Sitting up in a chair at the bedside. Maintaining O2 saturations in the 90s on room air. Chest tube remains in place. No leak noted. Chest x-ray reveals interval development of a soft small right apical pneumothorax. Placed to wall suction. Right-sided volume loss secondary to pneumothorax and right lower lobe lobectomy. She is working well with the incentive spirometer. She remains on bronchodilators. Heparin for DVT prophylaxis. Patient was evaluated today on 10/17/2023, patient continues to do well, her chest tube remains in place, it is on low continuous wall suction, patient has a small tiny right-sided apical pneumothorax, and she has apparently a small intermittent leak with cough present. Otherwise the patient doing well, and no plans to remove the right-sided chest tube at this point. Patient is doing well with incentive spirometry, and she is ambulating on her own without difficulty. WBC count is 9.3 hemoglobin 12.4 electrolytes are normal renal profile is normal Objective - Vital Signs Vital signs: Vital Signs Temp 98.1 F 10/17/23 08:00 Pulse 100 10/17/23 12:05 Resp 16 10/17/23 12:00 BP 116/76 10/17/23 12:00 Pulse Ox 98 10/17/23 12:00 FiO2 Intake & Output 10/16/23 10/17/23 10/17/23 18:59 06:59 18:59 Intake Total 236 118 Output Total 50 90 Balance 186 -90 118 Intake: Oral 236 118 Output: Chest Tube Drainage 50 90 Chest Tube Right Lateral 50 90 Chest Other: Voiding Method Toilet Toilet Toilet # Voids 2 - Exam GENERAL EXAM: Reveals 68-year-old female in no distress HEAD: Normocephalic. Atraumatic EYES: Normal reaction of pupils, equal size. NOSE: Clear with pink turbinates. THROAT: No erythema or exudates. NECK: No masses, no JVD. CHEST: No chest wall deformity. Right-sided chest tube remains in place to Pleur-evac and wall suction LUNGS: Equal air entry with crackles in the right base, diminished., Right- sided chest tube is noted in place. CVS: S1 and S2 normal with no audible murmur, regular rhythm. ABDOMEN: No hepatosplenomegaly, normal bowel sounds, no guarding or rigidity. SKIN: No rashes CENTRAL NERVOUS SYSTEM: Alert oriented x 3 no gross focal deficit EXTREMITIES: No clubbing edema or cyanosis - Labs CBC & Chem 7: 10/15/23 08:56 10/15/23 08:56 Assessment and Plan Assessment: Impression: Non-small cell lung cancer involving right lower lobe/squamous cell carcinoma status post robotic assisted thoracoscopic right lower lobectomy and mediastinal node dissection postoperative day #3 Mild COPD, FEV1 in the range of 79% Dyslipidemia Fibromyalgia GERD without esophagitis Ex-smoker quit in June 18, 2001 4 Degenerative joint disease Recommendation: Continue present supportive care measures Continue incentive spirometry Ambulation Continue chest tube to wall suction Monitor daily x-rays of the chest Will continue to follow Time with Patient: Less than 30
--- NOTE | 2023-10-18 08:16 | XR ---
EXAMINATION TYPE: XR chest 2V DATE OF EXAM: 10/18/2023 6:30 AM CLINICAL INDICATION:Female, 68 years old with history of Postop right lower lobectomy; [facility] COMPARISON: Chest radiographs from 10/17/2023 TECHNIQUE: XR chest 2V Frontal and lateral views of the chest. FINDINGS: Lungs/Pleura: There is no evidence of pleural effusion, focal consolidation, or left pneumothorax. Pulmonary vascularity: Unremarkable. Heart/mediastinum: Cardiomediastinal silhouette is unremarkable. Musculoskeletal: No acute osseous pathology. Other findings: None Lines/Tubes: Right thoracotomy tube is present with evidence of pneumothorax. IMPRESSION: Small right pneumothorax. Chest tube in place.
--- NOTE | 2023-10-18 14:57 | P.PN ---
Subjective Progress Note Date: 10/18/23 This is a 68-year-old female normally sees Dr. Gupta, patient was found to have right lower lobe mass in May on a screening CT of the chest. Patient underwent PET scan in July, underwent robotic bronchoscopy with EBUS by Dr. Kolb on September 07. PET scan showed significant uptake in the primary tumor and no evidence of metastatic disease. 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 EBUS did not detect any significant lymphadenopathy and no biopsies were performed from the lymph nodes. Patient was referred to Dr. Rudd, and yesterday she underwent mediastinoscopy with lymph node biopsy and on table diagnoses robotic assisted thoracoscopic right lower lobectomy with mediastinal lymph node dissection. Postoperatively patient was admitted to cardiac floor, and we were asked to see on consultation for her underlying COPD. Patient is doing well, she is relatively asymptomatic, does not seem to be in any form of distress. During my evaluation, patient was on room air. Chest x-ray today showed postsurgical changes and no sizable pneumothorax, right-sided chest tube is noted, The patient is seen today October 16, 2023 in follow-up on the selective care unit. She is currently awake and alert in no acute distress. Sitting up in a chair at the bedside. Maintaining O2 saturations in the 90s on room air. Chest tube remains in place. No leak noted. Chest x-ray reveals interval development of a soft small right apical pneumothorax. Placed to wall suction. Right-sided volume loss secondary to pneumothorax and right lower lobe lobectomy. She is working well with the incentive spirometer. She remains on bronchodilators. Heparin for DVT prophylaxis. The patient is seen today October 18, 2023 in follow-up on the selective care unit. She is awake and alert in no acute distress. She is maintaining good O2 saturations in the 90s on room air. No new labs today. X-ray continues to show a small right pneumothorax. Chest tube remains in place. Small leak continues. She continues to work well with the incentive spirometer. Surgical pathology of the right lower lobe lobectomy does reveal invasive moderately differentiated squamous cell carcinoma. Lymph node 11 R was also positive for metastatic squamous cell carcinoma. Objective - Vital Signs Vital signs: Vital Signs Temp 98.4 F 10/18/23 09:32 Pulse 87 10/18/23 14:08 Resp 16 10/18/23 14:08 BP 149/75 10/18/23 11:52 Pulse Ox 98 10/18/23 11:52 FiO2 Intake & Output 10/17/23 10/18/23 10/18/23 18:59 06:59 18:59 Intake Total 354 360 600 Output Total 50 50 90 Balance 304 310 510 Intake: Oral 354 360 600 Output: Chest Tube Drainage 50 90 Chest Tube Right Lateral 50 90 Chest Drainage 50 Right Chest 50 Other: Voiding Method Toilet Toilet Toilet - Exam GENERAL EXAM: Alert, pleasant 68-year-old female, on room air, comfortable in no apparent distress. HEAD: Normocephalic. EYES: Normal reaction of pupils, equal size. NOSE: Clear with pink turbinates. THROAT: No erythema or exudates. NECK: No masses, no JVD. CHEST: No chest wall deformity. Right-sided chest tube remains in place. Small leak continues LUNGS: Equal air entry with crackles in the right base, diminished. CVS: S1 and S2 normal with no audible murmur, regular rhythm. ABDOMEN: No hepatosplenomegaly, normal bowel sounds, no guarding or rigidity. SPINE: No scoliosis or deformity SKIN: No rashes CENTRAL NERVOUS SYSTEM: No focal deficits, tone is normal in all 4 extremities. EXTREMITIES: There is no peripheral edema. No clubbing, no cyanosis. Peripheral pulses are intact. - Labs CBC & Chem 7: 10/15/23 08:56 10/15/23 08:56 Assessment and Plan Assessment: Non-small cell lung cancer involving right lower lobe/squamous cell carcinoma status post robotic assisted thoracoscopic right lower lobectomy and mediastinal node dissection postoperative day #4 Mild COPD, FEV1 in the range of 79% Dyslipidemia Fibromyalgia GERD without esophagitis Ex-smoker quit in June 18, 2001 4 Degenerative joint disease Plan: The patient was seen and evaluated Chest x-ray and medications reviewed Small right apical pneumothorax Chest tube remains with small leak Stable and on room air Continue the incentive spirometer We will continue to follow I have personally seen and examined the patient, performed the documentation and the assessment and plan as written. Number of minutes spent on the visit: 10.
[2023-10-18 21:20] VITALS: RESP 18
--- NOTE | 2023-10-19 09:24 | XR ---
EXAMINATION TYPE: XR chest 1V portable DATE OF EXAM: 10/19/2023 6:41 AM CLINICAL INDICATION:Female, 68 years old with history of Status post right lower lobectomy; [facility] COMPARISON: Chest radiograph from one day prior. TECHNIQUE: XR chest 1V portable Frontal view of the chest. FINDINGS: Lungs/Pleura: There is no evidence of pleural effusion, focal consolidation, or left pneumothorax. Pulmonary vascularity: Unremarkable. Heart/mediastinum: Cardiomediastinal silhouette is unremarkable. Musculoskeletal: No acute osseous pathology. Other findings: Soft tissue emphysema along the right lateral chest wall.a Lines/Tubes: Right thoracotomy tube is present with evidence of pneumothorax. IMPRESSION: Small right pneumothorax. Chest tube in place.
--- NOTE | 2023-10-19 10:37 | P.PN ---
Subjective Progress Note Date: 10/19/23 Principal diagnosis: Non-small cell cancer right lower lobe lung. Past medical history significant for hypertension, hyperlipidemia, COPD, history of pleurisy, gastroesophageal re flux disease, fibromyalgia, hemoptysis, osteoarthritis, history of nicotine dependence, quit smoking in June 2023 and use of marijuana. POD #5 Mediastinoscopy with lymph node biopsy and on table diagnosis, robotic assisted thoracoscopic right lower lobectomy with mediastinal lymph node dissection. Patient was seen and examined in follow-up today October 19, 2023 at her bedside on the cardiac stepdown unit. The patient is currently sitting up to the bedside chair, is awake, alert, oriented x 3 and is in no acute apparent distress. She reports she has been up ambulating in the cardiac stepdown unit hallway independently without complaints. Denies any complaints of pain or shortness of breath at this time. Pathology results showed the right lower lobe lung to be invasive moderately differentiated squamous cell carcinoma and a lymph node R11 showed multiple fragments of at least 1 lymph node which was positive for metastatic squamous cell carcinoma. The findings on the surgical pathology were reviewed with the patient by Dr. Rudd. Right pleural chest tube remains in place to waterseal. No air leak is present this morning, the chest tube drained 40 mL of thin serosanguineous drainage in the last 8 hours and 140 mL in the last 24 hours. Chest x-ray reviewed results. Objective - Vital Signs Vital signs: Vital Signs Temp 98.2 F 10/19/23 08:43 Pulse 78 10/19/23 09:47 Resp 18 10/19/23 08:45 BP 156/80 10/19/23 08:43 Pulse Ox 98 10/19/23 09:29 FiO2 Intake & Output 10/18/23 10/19/23 10/19/23 18:59 06:59 18:59 Intake Total 960 370 Output Total 100 40 Balance 860 -40 370 Intake: IV 10 Invasive Line 2 10 Oral 960 360 Output: Chest Tube Drainage 100 40 Chest Tube Right Lateral 100 40 Chest Other: Voiding Method Toilet Toilet Toilet - Exam CONSTITUTIONAL: Appears comfortable, cooperative, no acute distress RESPIRATORY: Lungs sounds diminished bilaterally, few scattered expiratory wheezes to right lobes. Respirations symmetrical, nonlabored. Currently on room air with oxygen saturation 97%. Able to achieve 2000 mL on incentive spirometry. Strong cough. CARDIOVASCULAR: S1, S2 present. Regular rate and rhythm, sinus rhythm on telemetry. Palpable peripheral pulses bilaterally. No edema present. No calf pain or tenderness noted. SCDs present. GASTROINTESTINAL: Abdomen soft, nontender, nondistended. Active bowel sounds present 4 quadrants. Tolerating diet. GENITOURINARY: Continues to void. INTEGUMENTARY: Skin is warm and dry with no clubbing or cyanosis. Right chest thoracic incision well approximated and covered with dry intact dressing. Mediastinoscopy incision is clean, dry and intact. No drainage or redness is present. NEUROLOGIC: Cranial nerves II through XII intact. No focal deficits. MUSKULOSKELETAL: Able to move all extremities, strength equal bilaterally, gait normal. PSYCHIATRIC: Alert and oriented to person place and time, appropriate affect, intact judgment and insight. INVASIVE LINES AND TUBES: Right pleural chest tubes present and connected to waterseal, no air leak is present.. Right pleural chest tube with 140 mL serosanguineous drainage in the last 24 hours. - Allied health notes Allied health notes reviewed: nursing - Labs CBC & Chem 7: 10/15/23 08:56 10/15/23 08:56 - Imaging and Cardiology Chest x-ray: report reviewed, image reviewed Assessment and Plan Assessment: Non-small cell cancer right lower lobe, status post robotic assisted thoracoscopic right lower lobectomy with mediastinal lymph node dissection Hypertension Hyperlipidemia COPD with a preoperative FEV1 79% of predicted value with an actual volume of 2.09 L History of pleurisy History of hemoptysis Fibromyalgia Osteoarthritis Gastroesophageal reflux disease History of nicotine dependence, quit smoking in June 2023 History of marijuana use Plan: Right pleural chest tube was removed this morning without incident. We will obtain a follow-up chest x-ray post chest tube removal. Encourage use of incentive spirometry 10 times every hour while awake. Surgical pathology results reviewed with the patient by Dr. Rudd yesterday October 18, 2023. Out of bed for all meals, increase activity as tolerated. Discharge planning is in place, anticipate discharge home in the next 24 hours. Pain control per current as needed orders. More recommendations to follow based on patient's clinical course. Time with Patient: Greater than 30
[2023-10-19 11:32] VITALS: PULSE 89; TEMP 97.8
[2023-10-19 11:58] VITALS: BP 177/79
--- NOTE | 2023-10-19 12:06 | P.PN ---
Subjective Progress Note Date: 10/19/23 Principal diagnosis: Lung cancer. This is a 68-year-old female normally sees Dr. Gupta, patient was found to have right lower lobe mass in May on a screening CT of the chest. Patient underwent PET scan in July, underwent robotic bronchoscopy with EBUS by Dr. Kolb on September 07. PET scan showed significant uptake in the primary tumor and no evidence of metastatic disease. 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 EBUS did not detect any significant lymphadenopathy and no biopsies were performed from the lymph nodes. Patient was referred to Dr. Rudd, and yesterday she underwent mediastinoscopy with lymph node biopsy and on table diagnoses robotic assisted thoracoscopic right lower lobectomy with mediastinal lymph node dissection. Postoperatively patient was admitted to cardiac floor, and we were asked to see on consultation for her underlying COPD. Patient is doing well, she is relatively asymptomatic, does not seem to be in any form of distress. During my evaluation, patient was on room air. Chest x-ray today showed postsurgical changes and no sizable pneumothorax, right-sided chest tube is noted, The patient is seen today October 16, 2023 in follow-up on the selective care unit. She is currently awake and alert in no acute distress. Sitting up in a chair at the bedside. Maintaining O2 saturations in the 90s on room air. Chest tube remains in place. No leak noted. Chest x-ray reveals interval development of a soft small right apical pneumothorax. Placed to wall suction. Right-sided volume loss secondary to pneumothorax and right lower lobe lobectomy. She is working well with the incentive spirometer. She remains on bronchodilators. Heparin for DVT prophylaxis. The patient is seen today October 18, 2023 in follow-up on the selective care unit. She is awake and alert in no acute distress. She is maintaining good O2 saturations in the 90s on room air. No new labs today. X-ray continues to show a small right pneumothorax. Chest tube remains in place. Small leak continues. She continues to work well with the incentive spirometer. Surgical pathology of the right lower lobe lobectomy does reveal invasive moderately differentiated squamous cell carcinoma. Lymph node 11 R was also positive for metastatic squamous cell carcinoma. Progress note dated October 19, 2023. This is a 68-year-old female status post right lower lobectomy. The patients pathology was positive for invasive moderately differentiated squamous cell carcinoma. On the mediastinal lymph node dissection, lymph node 11 R, was also positive. The patient is currently on room air. No IV fluids. The right-sided chest tube was removed today. The patient is hoping to be discharged either later today or tomorrow. She denies any shortness of breath, cough, wheezing, chest tightness, chest pain, or pressure. No new labs today. Objective - Vital Signs Vital signs: Vital Signs Temp 97.8 F 10/19/23 11:30 Pulse 89 10/19/23 11:30 Resp 18 10/19/23 11:30 BP 177/79 10/19/23 11:30 Pulse Ox 97 10/19/23 11:30 FiO2 Intake & Output 10/18/23 10/19/23 10/19/23 18:59 06:59 18:59 Intake Total 960 370 Output Total 100 40 Balance 860 -40 370 Intake: IV 10 Invasive Line 2 10 Oral 960 360 Output: Chest Tube Drainage 100 40 Chest Tube Right Lateral 100 40 Chest Other: Voiding Method Toilet Toilet Toilet - Exam No acute distress, oriented 3. Currently on room air. Saturation is 97%. HEENT examination is grossly unremarkable. Mucous membranes are moist. No oral lesions. Neck supple. Full range of motion. No adenopathy thyromegaly or neck vein distention. Cardiovascular examination reveals regular rhythm rate. S1-S2 normal. No S3 or S4. No discernible murmur noted. Lungs reveal minimal scattered rhonchi. No wheezes or crackles. Breath sounds are equal bilaterally. Abdomen soft bowel sounds are heard. No masses or tenderness. Extremities are intact. No cyanosis clubbing or edema. Skin is without rash or lesion. Neurologic examination is brief but nonfocal. - Labs CBC & Chem 7: 10/15/23 08:56 10/15/23 08:56 Assessment and Plan Assessment: Postoperative day #5, S/P robotically assisted thoracoscopic right lower lobectomy, and mediastinal lymph node dissection. Recent diagnosis of squamous cell carcinoma of the right lower lobe. Mild COPD, with an FEV1 at 79% of predicted. Hyperlipidemia. Fibromyalgia. Gastroesophageal reflux disease without esophagitis. Previous history of tobacco use. Degenerative joint disease. Plan: Plan dated October 19, 2023. The patient is seen today in room 378. Her right-sided chest tube was removed by cardiothoracic surgery today. I am sure the patient will have a follow-up chest x-ray. She is not receiving any IV fluids. She is currently on room air. Labs, x-rays, and medications are reviewed. The patient will continue using the incentive spirometer. I will see her in the office. Because of her positive 11 R lymph node, she was need to see medical oncology. Additional recommendations and suggestions are forthcoming. Time with Patient: Less than 30
--- NOTE | 2023-10-19 13:17 | XR ---
EXAMINATION TYPE: XR chest 2V DATE OF EXAM: 10/19/2023 12:32 PM CLINICAL INDICATION:Female, 68 years old with history of Post chest tube removal; [facility] COMPARISON: Chest radiographs from 10/19/2023 TECHNIQUE: XR chest 2V Frontal and lateral views of the chest. FINDINGS: Lungs/Pleura: There is no evidence of pleural effusion, focal consolidation, or pneumothorax. Pulmonary vascularity: Unremarkable. Heart/mediastinum: Cardiomediastinal silhouette is unremarkable. Musculoskeletal: No acute osseous pathology. Other findings: None Lines/Tubes: Removal right thoracotomy tube. No obvious pneumothorax. IMPRESSION: Thoracotomy tube removed. No obvious pneumothorax.
--- NOTE | 2023-10-19 15:25 | P.DS ---
Providers Date of admission: 10/14/23 05:42 Expected date of discharge: 10/19/23 Attending physician: Elfego Rudd Consults: 10/14/23 17:23 Consult Physician Routine Consulting Provider: Aissatou Jones Reason/Comments: Postoperative right lower lobectomy Do you want consulting provider notified?: Yes Primary care physician: Oscar Herrera [facility] Course: FINAL DIAGNOSIS: Non-small cell cancer right lower lobe, status post robotic assisted thoracoscopic right lower lobectomy with mediastinal lymph node dissection Hypertension Hyperlipidemia COPD with a preoperative FEV1 79% of predicted value with an actual volume of 2.09 L History of pleurisy History of hemoptysis Fibromyalgia Osteoarthritis Gastroesophageal reflux disease History of nicotine dependence, quit smoking in June 2023 History of marijuana use PRINCIPAL PROCEDURE: 1. Mediastinoscopy with lymph node biopsy and on table diagnosis, robotic assisted thoracoscopic right lower lobectomy with mediastinal lymph node dissection. HISTORY OF PRESENT ILLNESS: This is a 68-year-old female patient who follows on an outpatient basis with Dr. Oscar Herrera for her primary care, Dr. Justus Gupta for her pulmonary care and with Dr. Cordova for her cardiology care. In June 2023 the patient was having some hemoptysis in which she was being worked up for. She underwent a CT scan of the chest which revealed a large right lower lobe mass. For further workup she underwent a PET CT scan in July 2023 which demonstrated uptake in the tumor and no evidence of metastasis. She also underwent a bronchoscopy with EBUS and a CT-guided biopsy performed in August 2023 which showed no evidence of lymph kvng disease and squamous cell carcinoma of the right lower lobe. Pulmonary function test were completed in Dr. Vines's office demonstrating an FEV1 of 2.05 L, which was 97% of predicted value and an FVC of 2.5 L, which is 90% of predicted value, DLCO was 15.84 which was 78% of predicted value. Due to the patient's symptoms of hemoptysis and findings on the above-mentioned studies she was referred to Dr. Elfego Rudd from cardiothoracic surgery for further evaluation and treatment recommend ations. The patient was a smoker and quit in June 2023. The patient met with Dr. Rudd, treatment options were discussed including mediastinal anoscopy with pretracheal lymph node biopsy, on the table diagnosis and robotic assisted thoracoscopic right lower lobectomy with mediastinal lymph node dissection. Risks and benefits of surgery were discussed with the patient and knowing and understanding the risks the patient wished to proceed with the surgical option. HOSPITAL COURSE: The patient was brought to the hospital on 10/14/23, taken to the preoperative area, prepared in the usual fashion, and subsequently taken to the operating room where Dr. Rudd performed a mediastinoscopy with lymph node biopsy and on table diagnosis, robotic assisted thoracoscopic right lower lobectomy with mediastinal lymph node dissection. Upon completion of surgery the patient was extubated and taken to the recovery room for further monitoring. She was eventually admitted to 3 S. cardiac stepdown unit for further hemodynamic monitoring. She continued to have intermittent air leak which finally resolved on postop day #4. Chest tube was discontinued on postoperative day #5, follow-up chest x-ray was stable. Her oxygen was titrated down, she was tolerating oral diet, her pain was controlled, and she was ready to be discharged to home on postoperative day #5. She received written and verbal instruction regarding her medications, activity restrictions, signs and symptoms requiring physician notification, and follow-up appointments. Plan - Discharge Summary Discharge Rx Participant: No New Discharge Prescriptions: Continue Omeprazole 20 mg PO QAM Meloxicam [Mobic] 15 mg PO DAILY lisinopriL [Zestril] 10 mg PO QAM HYDROcodone/APAP 10-325MG [Scotts 10-325] 1 tab PO TID PRN PRN Reason: Pain Escitalopram [Lexapro] 5 mg PO QAM Aspirin EC [Ecotrin Low Dose] 81 mg PO DAILY Gabapentin 600 mg PO QID PRN PRN Reason: Pain Discharge Medication List Omeprazole 20 mg PO QAM 02/24/16 [History] Aspirin EC [Ecotrin Low Dose] 81 mg PO DAILY 07/08/23 [History] Escitalopram [Lexapro] 5 mg PO QAM 07/08/23 [History] Gabapentin 600 mg PO QID PRN 07/08/23 [History] HYDROcodone/APAP 10-325MG [Scotts 10-325] 1 tab PO TID PRN 07/08/23 [History] Meloxicam [Mobic] 15 mg PO DAILY 07/08/23 [History] lisinopriL [Zestril] 10 mg PO QAM 07/08/23 [History] Follow up Appointment(s)/Referral(s): Elfego Rudd MD [STAFF PHYSICIAN] - 10/28/23 2:00 pm Oscar Herrera DO [Primary Care Provider] - As Needed Justus Gupta DO [Doctor of Osteopathic Medicine] - 10/27/23 8:30 am Activity/Diet/Wound Care/Special Instructions: DISCHARGE INSTRUCTIONS: 1. No driving for 2 weeks, or until physician gives their ok. 2. No lifting, pushing, or pulling more than 10 pounds for 2 weeks. The physician will advise of any restriction changes. 3. Continue pain control per as needed orders. Continue home medications for pain control. 4. Continue with incentive spirometry and splinting until otherwise directed by the physician. 5. Leave chest tube dressing for 48 hours. After that, remove all dressings and shower daily. 6. Routine incision care. No powders, lotions, ointments on incisions. 7. Please call surgeon/TRIAGE TECHNICIAN for temp greater than 101 F or purulent drainage from incisions. 8. Smoking cessation counseling and program information provided. For any questions or concerns please call nurse practitioners Ayesha or oJse at [phone]. Discharge Disposition: HOME SELF-CARE
[2023-10-19 15:38] VITALS: BMI 31.6
== END 2023-10-19 15:55 | disposition home or self-care (01) | DRG 164 ==
LOC: 2ORMAIN 05:42 → 3SCARD 17:00
PROVIDERS: ADMIT Thoracic Surgery (Cardiothoracic Vascular Surgery); ATTEND Thoracic Surgery (Cardiothoracic Vascular Surgery)
PROC: 3E0T3BZ Introduction of Anesthetic Agent into Peripheral Nerves and Plexi, Percutaneous Approach (ICD-10-PCS; 2023-10-14)
PROC: 0W9930Z Drainage of Right Pleural Cavity with Drainage Device, Percutaneous Approach (ICD-10-PCS; 2023-10-14)
PROC: 8E0W4CZ Robotic Assisted Procedure of Trunk Region, Percutaneous Endoscopic Approach (ICD-10-PCS; 2023-10-14)
PROC: 03HY32Z Insertion of Monitoring Device into Upper Artery, Percutaneous Approach (ICD-10-PCS; 2023-10-14)
PROC: 4A133B1 Monitoring of Arterial Pressure, Peripheral, Percutaneous Approach (ICD-10-PCS; 2023-10-14)
PROC: 4A133J1 Monitoring of Arterial Pulse, Peripheral, Percutaneous Approach (ICD-10-PCS; 2023-10-14)
PROC: 0BTF4ZZ Resection of Right Lower Lung Lobe, Percutaneous Endoscopic Approach (ICD-10-PCS; principal; 2023-10-14 07:30)
PROC: 07B74ZZ Excision of Thorax Lymphatic, Percutaneous Endoscopic Approach (ICD-10-PCS; 2023-10-14 07:30)
DX: C34.31 Malignant neoplasm of lower lobe, right bronchus or lung (principal); J93.83 Other pneumothorax; E78.5 Hyperlipidemia, unspecified; I10 Essential (primary) hypertension; J44.9 Chronic obstructive pulmonary disease, unspecified; K21.9 Gastro-esophageal reflux disease without esophagitis; M19.90 Unspecified osteoarthritis, unspecified site; M79.7 Fibromyalgia; Z79.1 Long term (current) use of non-steroidal anti-inflammatories (NSAID); Z79.82 Long term (current) use of aspirin; Z85.118 Personal history of other malignant neoplasm of bronchus and lung; Z87.891 Personal history of nicotine dependence; Z88.5 Allergy status to narcotic agent
CPT/HCPCS: 64999; 71045; 71046; 80048; 85025; 88305; 88309; 88331; 94640; 94760

== ENCOUNTER → 2023-10-25 | Outpatient (CLI) | payer MEDICARE, OTHER ==
--- NOTE | 2023-10-25 15:36 | MR ---
EXAMINATION TYPE: MR brain wo/w con DATE OF EXAM: 10/25/2023 3:05 PM CLINICAL INDICATION:Female, 68 years old with history of C34.31 MALIGNANT NEOPLASM OF LOWER LOBE, RIG HT BRO, Lung cancer, check for mets. COMPARISON: None TECHNIQUE: Multi planar, multi sequence imaging was performed through the brain including: T1, T2, In version recovery, susceptibility weighted imaging and gradient echo imaging and Diffusion weighted im aging. The patient was then given intravenous contrast and multi planar, T1 fat-saturation images wer e obtained. IV Contrast: 7.5 cc Gadavist FINDINGS: The henry-white junctions, ventricular system, basal cisterns appear unremarkable. Diffusion-weighted imaging shows no evidence of restricted diffusion to suggest acute/subacute infarct. Intracranial ar terial flow voids are maintained. Midline structures show no abnormality. Scattered foci of high T2 s ignal intensity are seen within the periventricular white matter. The susceptibility weighted images do not reveal any evidence for micro-hemorrhage. After administration of gadolinium, no abnormal enha ncement is seen. The bone marrow signal is within normal limits. Paranasal sinuses and mastoid air cells: No significant paranasal sinus disease. Visualized orbits: Right aphakia. IMPRESSION: 1. No evidence of intracranial mass, acute/subacute infarct, or abnormal enhancement. 2. Nonspecific white matter changes, likely related to small vessel ischemic disease.
== END | disposition home or self-care (01) ==
LOC: RADMRIMAIN 14:05
PROVIDERS: ATTEND Thoracic Surgery (Cardiothoracic Vascular Surgery)
DX: C34.31 Malignant neoplasm of lower lobe, right bronchus or lung (principal); R90.82 White matter disease, unspecified
CPT/HCPCS: 70553; A9585

== ENCOUNTER → 2024-05-30 | Outpatient (CLI) | payer MEDICARE, OTHER ==
[2024-05-30 12:40] LABS: African American GFR (CKD) 82 (>60 ml/min/1.73 sqM); Blood Urea Nitrogen 15 mg/dL (7-17); Non-African American GFR(CKD) 71 (>60 ml/min/1.73 sqM)
--- NOTE | 2024-05-30 13:35 | CT ---
EXAMINATION TYPE: CT ChestAbdPelvis w con DATE OF EXAM: 05/30/2024 COMPARISON: CT chest dated 09/09/[address] abdomen and pelvis dated 06/03/2014 HISTORY: lung ca, obs for mets. IV contrast only CT DLP: 1658 mGycm Automated exposure control for dose reduction was used. CONTRAST: CT scan of the chest, abdomen and pelvis is performed without Oral Contrast and with IV Contrast, pat ient injected with 100ml mL of Isovue 300. FINDINGS: CT chest: There are multiple metastatic lesions within both lungs. The largest metastatic lesion in the right l zack is found in the upper lobe and is 2.3 cm in size and is cavitary. There is a single additional me tastatic lesion in the right upper lobe. There are 3 metastatic lesions in the left lung largest of w hich is found in the left lower lobe. It measures 2.8 cm and is cavitary. A large right infrahilar mass seen on the prior study has resolved in the interval There is interval development of a small right pleural effusion. There is no pneumothorax. The great vessels of the chest are normal. There is a stable 16 mm subcarinal lymph node. No new lymph nodes identified within the mediastinum, hilar or axilla. No focal osseous lesions are seen. CT abdomen and pelvis: There is surgical absence of gallbladder. There is no biliary ductal dilatation. There is no focal mass or organomegaly involving the liver, pancreas, spleen or adrenal glands.. Ther e is mild fatty infiltration of the liver. There is no solid renal mass or hydronephrosis. There is no retroperitoneal adenopathy or hemorrhage in the caliber of the abdominal aorta is normal. The bowel loops are normal in caliber and there is no dilatation or obstruction. No inflammatory santana ges identified in the bowel wall and mesentery. There is no free intracranial air or fluid. There is no pelvic mass or adenopathy. There is no free fluid within the pelvis. No focal osseous lesions are seen. Soft tissue the abdomen and pelvis are normal. IMPRESSION: 1. Interval development of a small right pleural effusion and multiple metastatic lesions in both louie gs some of which are cavitary as described above. 2. Stable 16 mm subcarinal lymph node. 3. Resolution of the large right infrahilar mass seen on the prior study. 4. No evidence of metastatic disease within the abdomen or pelvis. [facility], , 05/30/2024 1:32 PM
== END | disposition home or self-care (01) ==
LOC: RADCTMAIN 11:53
PROVIDERS: ATTEND Internal Medicine
DX: C34.31 Malignant neoplasm of lower lobe, right bronchus or lung (principal); M51.9 Unspecified thoracic, thoracolumbar and lumbosacral intervertebral disc disorder; G35 Multiple sclerosis; M79.7 Fibromyalgia; I10 Essential (primary) hypertension; C78.02 Secondary malignant neoplasm of left lung; J90 Pleural effusion, not elsewhere classified
CPT/HCPCS: 82565; 84520; 71260; 74177; 36415; Q9967

== ENCOUNTER → 2024-06-08 | Outpatient (CLI) | payer MEDICARE, OTHER ==
--- NOTE | 2024-06-08 14:37 | MR ---
EXAMINATION TYPE: MR brain wo/w con DATE OF EXAM: 06/08/2024 2:14 PM COMPARISON: 10/25/2023. CLINICAL INDICATION: Female, 69 years old with history of C34.31 MALIGNANT NEOPLASM OF LOWER LOBE, RI GHT BRO; [facility], Lung cancer, [place]. TECHNIQUE: Multi planar, multi sequence imaging was performed through the brain including: T1, T2, In version recovery, susceptibility weighted imaging and gradient echo imaging and Diffusion weighted im aging. The patient was then given intravenous contrast and multi planar, T1 fat-saturation images wer e obtained. IV Contrast: 7.5 mL Gadobutrol FINDINGS: The henry-white junctions, ventricular system, basal cisterns appear unremarkable. Diffusion-weighted imaging shows no evidence of restricted diffusion to suggest acute/subacute infarct. Intracranial ar terial flow voids are maintained. Midline structures show no abnormality. Scattered foci of high T2 s ignal intensity are seen within the periventricular white matter. The susceptibility weighted images do not reveal any evidence for micro-hemorrhage. After administration of gadolinium, no abnormal enha ncement is seen. The bone marrow signal is within normal limits. Paranasal sinuses and mastoid air cells: No significant paranasal sinus disease. Visualized orbits: Orbital contents are intact. IMPRESSION: 1. No evidence of intracranial mass, acute/subacute infarct, or abnormal enhancement. 2. Nonspecific white matter changes, possibly related to patient's history of multiple sclerosis, or likely related to small vessel ischemic disease. [facility], , 06/08/2024 2:34 PM
== END | disposition home or self-care (01) ==
LOC: RADMRIMAIN 13:25
PROVIDERS: ATTEND Internal Medicine
DX: C34.31 Malignant neoplasm of lower lobe, right bronchus or lung (principal); I10 Essential (primary) hypertension; M15.9 Polyosteoarthritis, unspecified; E78.5 Hyperlipidemia, unspecified; M79.7 Fibromyalgia; G35 Multiple sclerosis; R90.82 White matter disease, unspecified
CPT/HCPCS: 70553; A9585

== ENCOUNTER → 2024-06-09 | Outpatient (CLI) | payer MEDICARE, OTHER ==
--- NOTE | 2024-06-10 12:15 | PE ---
EXAMINATION TYPE: PET CT fusion skull to thigh DATE OF EXAM: 06/09/2024 CLINICAL INDICATION:Female, 69 years old with history of C34.31 LUNG CANCER; TECHNIQUE: Following the intravenous administration of 12.01 mCi of F-18 FDG, whole body images are performed from the skull base to the midthigh. Images are reviewed on the computer in the coronal, axial, and sagittal planes. Reconstructed rotating images are created on independent workstation and reviewed on the computer. A non-contrast CT is performed in conjunction with the PET scan. Glucose level 80 mg/dL CT DLP: 546.25 mGycm, Automated exposure control for dose reduction was used. COMPARISON: CT 05/30/2024, 09/09/2023, 07/08/2023, PET/CT 08/05/2023, MRI: 06/08/2024, 10/25/2023 FINDINGS: Mediastinal SUV mean is 2.2. Hepatic parenchyma SUV mean is 2.7. SKULL BASE AND NECK: No suspicious radiotracer activity. CHEST, MEDIASTINUM, AND HILAR REGION: Superior segment left lower lobe 3.2 cm cavitary mass with a maximum SUV of 20.5. Right upper lung 1.5 cm cavitary lesion with a maximum SUV of 13.7. Right midlung 2.1 cm cavitary lesion with a maximum SUV of 25.1. Left lower lobe 2.5 cm cavitary lesion with a maximum SUV of 28.8. Left lower lobe 1.7 cm cavitary lesion with a maximum SUV of 24.1. Right paratracheal 1.1 cm nodule with a max SUV of 5.1. Right hilar focal region of FDG activity with a maximum SUV of 4.4. Subcarinal lymph node with a maximum SUV of 4.2. ABDOMEN AND PELVIS: No suspicious radiotracer activity. MUSCULOSKELETAL STRUCTURES: No suspicious radiotracer activity. OTHER CT: Right aphakia. Mild coronary calcification calcifications. Trace right pleural effusion. Ga llbladder is surgically absent. Mild atherosclerotic calcification of the aorta and its branches. Pos tsurgical changes of the right upper lung with suture material along the posterior medial aspect. IMPRESSION: 1. Several markedly FDG avid cavitary pulmonary lesions highly concerning for metastasis/recurrence. 2. Few mildly FDG avid mediastinal and right hilar lymph nodes concerning for possible metastasis. 3. No other suspicious FDG activity identified. [facility], , 06/10/2024 12:12 PM
== END | disposition home or self-care (01) ==
LOC: RADPETMAIN 11:18
PROVIDERS: ATTEND Internal Medicine
DX: C34.31 Malignant neoplasm of lower lobe, right bronchus or lung (principal); J98.4 Other disorders of lung; I70.0 Atherosclerosis of aorta; H27.01 Aphakia, right eye
CPT/HCPCS: 78815; A9552

== ENCOUNTER → 2024-11-09 | Outpatient (CLI) | payer MEDICARE, OTHER ==
[2024-11-09 15:07] LABS: African American GFR (CKD) 79 (>60 ml/min/1.73 sqM); Blood Urea Nitrogen 18 mg/dL (7-17); Non-African American GFR(CKD) 69 (>60 ml/min/1.73 sqM)
--- NOTE | 2024-11-10 11:31 | CT ---
EXAMINATION TYPE: CT ChestAbdPelvis w con DATE OF EXAM: 11/09/2024 3:34 PM COMPARISON: PET/CT 06/09/2024. CLINICAL INDICATION: Female, 69 years old with history of C34.31 LUNG CANCER; [facility], F/u lung ca Technique: CT ChestAbdPelvis w con; Multiple axial images were obtained. Two-dimensional coronal and sagittal reconstructions were obtained. Contrast used:100ml mL of Isovue 300 with IV Contrast, Oral contrast used: without Oral Contrast CT DLP: 937.7 mGycm, Automated exposure control for dose reduction was used. Findings: CHEST: Normal size without pericardial effusion. LAD and RCA coronary artery calcifications are present. Aorta normal caliber with minimal atherosclerotic arch calcifications and conventional arch vessel br anching anatomy. Paratracheal lymph nodes measure up to 8 mm. No thoracic lymph adenopathy by CT size criteria. Mild emphysematous change. Previous cavitary masses, 2 on the right and 3 on the left have become much less defined now and show s surrounding groundglass. On the right, these measure 1.2 cm and 2.0 cm (versus 1.5 cm and 2.1 cm, previously, respectively). On the left, these measure 1.5 cm, 1.4 cm, and 9 mm (versus 3.2 cm, 2.5 cm, and 1.7 cm, previously, r espectively). ABDOMEN: There may be mild fatty infiltration of the liver. Prominent bile duct likely due to post cholecystec chris status. Portal venous system is patent. Adrenal glands, kidneys, spleen, pancreas within normal limits. No dilated small bowel or free fluid, or free air. No mesenteric or retroperitoneal lymphadenopathy. Normal appendix. No osseous destructive process. Scattered mild stool. No pericolonic inflammatory ch damien. Pelvis: Bladder nondistended. Uterus anteverted. Both ovaries are visualized. Calcifications in the right ova ry measuring up to 1.4 cm. Questionable clinical significance. Left-sided pelvic phlebolith. No abnor mal fluid collection in the pelvis or pelvic lymphadenopathy. Bones: No osseous destructive process. IMPRESSION: 1. 3 lesions redemonstrated in the left lung and 2 lesions in the right lung. These have become less defined and decreased in size in the interval as outlined above. Findings suggest treatment response. Given residual densities, additional follow-up is recommended. 2. No evidence for disease progression. [facility], , 11/10/2024 11:28 AM
== END | disposition home or self-care (01) ==
LOC: RADCTMAIN 14:19
PROVIDERS: ATTEND Internal Medicine
DX: C34.31 Malignant neoplasm of lower lobe, right bronchus or lung (principal); I10 Essential (primary) hypertension; M15.9 Polyosteoarthritis, unspecified; E78.5 Hyperlipidemia, unspecified; M79.7 Fibromyalgia; G35 Multiple sclerosis; J98.4 Other disorders of lung; Z71.3 Dietary counseling and surveillance
CPT/HCPCS: 82565; 84520; 71260; 74177; 36415; Q9967